=== PATIENT | female | born 1950 | race Caucasian/White ===

== ENCOUNTER 2023-12-18 04:41 | Emergency (ER) | payer MEDICARE, BC, SELFPAY ==
--- NOTE | ~2023-12-18 | XR_ITS ---
EXAMINATION: XR chest 1V portable DATE: 12/18/2023 05:12 INDICATION: Shortness of breath. TECHNIQUE: A single frontal view of the chest was obtained. COMPARISON: None. FINDINGS: A calcified left lung nodule is consistent with old granulomatous disease. There is mild sc arring at right lung apex. There is mild atelectasis at left lung base. No pleural effusion or pneumo thorax. The heart size is normal. IMPRESSION: 1. Mild scarring at right lung apex and mild atelectasis at left lung base. Reviewed, dictated and finalized at location E.
[2023-12-18 04:40] VITALS: BP 146/70; PULSE 95; RESP 20; TEMP 37.3; O2SAT 98
[2023-12-18 04:46] VITALS: PULSE 88
[2023-12-18 04:47] VITALS: O2SAT 98
[2023-12-18 04:48] VITALS: BP 146/70; PULSE 89; RESP 20; TEMP 37.3; O2SAT 97
--- NOTE | 2023-12-18 04:49 | ECG_ITS ---
Test Date: 2023-12-18 04:47:42 Measurements Intervals [place] Rate: 84 P: 12 MT: 136 QRS: 35 QRSD: 77 T: 40 QT: 355 QTc: 420 Interpretive Statements SINUS RHYTHM NORMAL ELECTROCARDIOGRAM No previous ECG available for comparison Electronically Signed On 12-18-2023 15:15:44 CDT by Earnest Pérez M.D.
[2023-12-18 04:57] LABS: Basophils Percent Auto 0.5 % (0.2-1.2); Eosinophils Absolute Auto 0.3 K/mm3 (0-0.3); Eosinophils Percent Auto 3.5 % (0-4.4); Hematocrit 39.2 % (37.0-47.0); Hemoglobin 12.9 g/dL (12.0-15.0); Immature Granulocyte Absolute 0.02 K/mm3 (0.00-0.031); Immature Granulocyte Percent A 0.3 % (0-0.5); Lymphocytes Absolute Auto 1.77 K/mm3 (0.9-3.2); Lymphocytes Percent Auto 23.1 % (18.3-44.2); Mean Corpuscular HGB Conc 32.9 g/dl (32-36); Mean Corpuscular Volume 97.3 fl (80-100); Mean Platelet Volume 9.8 fl (7.4-10.4); Monocytes Absolute Auto 1.1 K/mm3 (0.1-0.6); Monocytes Percent Auto 13.7 % (2.6-8.5); Neutrophils Absolute Auto 4.5 K/mm3 (1.3-6.7); Neutrophils Percent Auto 58.9 % (45.5-73.1); Platelet Count Result 226 k/mm3 (150-375); Red Blood Count 4.03 M/mm3 (4.2-5.4); Red Cell Distribution Width 12.8 % (11.5-14.5); White Blood Count 7.7 K/mm3 (4.5-10.0)
[2023-12-18 05:07] LABS: Alanine Aminotransferase 24 U/L (6-35); Albumin Level 4.2 g/dL (3.5-5.1); Alkaline Phosphatase 88 U/L (38-126); Anion Gap 6 mmol/L (4-12); Aspartate Amino Transferase 32 U/L (14-36); Bilirubin,Total 0.4 mg/dL (0.2-1.3); Blood Urea Nitrogen 20 mg/dL (7-17); Calcium 9.1 mg/dL (8.4-10.2); Carbon Dioxide 24 mmol/L (22-30); Chloride 106 mmol/L (98-107); Estimated CRCL calculation 46 ml/min; Estimated Glomerular Filt Rate > 60; Glucose 94 mg/dL (65-110); Potassium 4.3 mmol/L (3.4-5.0); Sodium 136 mmol/L (137-145)
[2023-12-18] MEDS: guaiFENesin/DEXTROMETHORPHAN 10 ML UDC PO (05:10)
[2023-12-18] MEDS: SODIUM CHLORIDE 0.9% IV 1,000 ML 999 ML IV CONT (05:10)
[2023-12-18] MEDS: ACETAMINOPHEN 500 MG TABLET 1000 MG PO (05:10)
[2023-12-18] MEDS: KETOROLAC 15 MG/ML VIAL (*BKC) IV PUSH (05:10)
[2023-12-18 05:50] LABS: Strep Group A RT-PCR NOT DETECTED (Negative)
[2023-12-18 06:02] LABS: Influenza A QL RT-PCR Negative (Negative); Influenza B QL RT-PCR Negative (Negative); RSV RNA, RT-PCR Negative (Negative); SARS-CoV-2 RNA PCR Negative (Negative)
--- NOTE | 2023-12-18 06:24 | ED.GENADULT ---
HPI - General Adult General Chief complaint: Shortness of Breath/Dyspnea Stated complaint: sob Time Seen by Provider: 12/18/23 04:42 History of Present Illness HPI narrative: This is a 73-year-old female presenting ED with Cough shortness of breath. Five days ago patient had cough congestion and sore throat. Now she has developed a productive cough. No chest pain or shortness of breath. She she had a fever several days ago but has been fever free since then. She has been treating her symptoms with Robitussin. patient has had some decreased appetite as well. No nausea vomiting diarrhea chest pain or abdominal pain. Related Data Home Medications Medication Instructions Recorded Confirmed diazepam 10 mg tablet 10 mg PO ONCE PRN 07/13/22 11/29/23 duloxetine 60 mg capsule,delayed 60 mg PO DAILY 07/13/22 11/29/23 release losartan 25 mg tablet 25 mg PO DAILY 07/13/22 11/29/23 mometasone 0.1 % topical cream 1 applic topical DAILY 07/13/22 11/29/23 propranolol 10 mg tablet 10 mg PO Q12H 07/13/22 11/29/23 sumatriptan succinate 50 mg tablet See Rx Instructions PO .COMPLEX 07/13/22 11/29/23 aspirin 81 mg tablet,delayed 81 mg PO DAILY 11/29/23 11/29/23 release (Adult Low Dose Aspirin) duloxetine 30 mg capsule,delayed 30 mg PO DAILY 11/29/23 11/29/23 release Allergies Allergy/AdvReac Type Severity Reaction Status Date / Time No Known Allergies Allergy Verified 12/18/23 04:50 [facility] Past Medical History Medical History Arthritis BCC (basal cell carcinoma), face Cataract Hypertension Migraine Premature atrial contractions Psoriasis Surgical History Surgical History H/O tubal ligation Hx of cataract removal with insertion of prosthetic lens S/P Mohs surgery for basal cell carcinoma Family History Family History Father Basal cell carcinoma (BCC) Diabetes mellitus Sibling Basal cell carcinoma (BCC) Mother Hypertension Heart problem Cerebrovascular accident Social History Social History Smoking status: Never smoker Second hand tobacco smoke exposure: No Alcohol intake: current Alcohol use details: Vodka tonic daily Substance use: never Do You Feel Safe in your Home?: Yes Lack of Transportation: No Lack of Food: Never True Current Housing: I Have Housing Concerned About Future Housing: No Difficulty Paying Gas/Electric Bills: No Difficulty Paying for Meds: No Currently Unemployed: No Education: Associate Degree Living arrangements: with family Occupation/Education: retired Agree to blood products: Yes Exam Narrative: APPEARANCE: No apparent distress. Head: Mild erythema of the posterior oropharynx EYES: EOMI, NOSE: Atraumatic NECK: Trachea midline RESPIRATORY: No increased rate of breathing, clear to auscultation CARDIOVASCULAR: RRR, no peripheral edema ABDOMINAL: Non-distended soft nontender MUSCULOSKELETAl: No obvious deformities NEURO: Alert. Moving 4/4 extremities SKIN:: Warm, dry. Normal color PSYCHIATRIC: Normal affect Course Vital Signs Vital signs: Vital Signs Temperature 99.1 F 12/18/23 04:40 Pulse Rate 95 12/18/23 04:40 Respiratory Rate 20 12/18/23 04:40 Blood Pressure 146/70 H 12/18/23 04:40 Pulse Oximetry 98 12/18/23 04:40 Oxygen Delivery Room Air 12/18/23 04:40 Temperature 99.1 F 12/18/23 04:48 Pulse Rate 89 12/18/23 04:48 Respiratory Rate 20 12/18/23 04:48 Blood Pressure 146/70 H 12/18/23 04:48 Pulse Oximetry 97 12/18/23 04:48 Oxygen Delivery Room Air 12/18/23 04:47 Medical Decision Making [facility] Narrative Medical decision making narrative: -Course: 73-year-old female presenting with viral symptoms. Vital signs stable and the patient is well-appearing chest x-r
[2023-12-18 06:40] VITALS: BP 130/60; PULSE 79; RESP 20; O2SAT 100
== END 2023-12-18 06:40 | disposition home or self-care (01) ==
PROVIDERS: Emergency Provider Emergency Medicine; PCP Emergency Medicine
DX: B34.9 Viral infection, unspecified (principal); Z20.822 Contact with and (suspected) exposure to COVID-19; R05.9 Cough, unspecified; M19.90 Unspecified osteoarthritis, unspecified site; I10 Essential (primary) hypertension; Z85.828 Personal history of other malignant neoplasm of skin
CPT/HCPCS: 36415; 71045; 80053; 85025; 87637; 87651; 93005; 96361; 96374; 99284; A9270; J1885; J7030

== ENCOUNTER 2024-06-05 12:48 | Outpatient (CLI) | payer MEDICARE, BC, SELFPAY ==
--- NOTE | 2024-06-05 12:03 | ECG_ITS ---
Test Date: 2024-06-05 12:17:21 Measurements Intervals [place] Rate: 69 P: -19 TX: 129 QRS: 115 QRSD: 98 T: 57 QT: 389 QTc: 418 Interpretive Statements SINUS RHYTHM POSSIBLE LEFT ATRIAL ENLARGEMENT [-0.1mV P-WAVE IN V1/V2] RIGHT AXIS DEVIATION [QRS AXIS > 100] LOW QRS VOLTAGE IN EXTREMITY LEADS [QRS DEFLECTION < 0.5 mV IN LIMB LEADS] INCOMPLETE RIGHT BUNDLE BRANCH BLOCK [90+ ms QRS DURATION, TERMINAL R IN V1/V2, 40+ ms S IN I/aVL/V4/V5/V6] ABNORMAL ECG Compared to ECG 12/18/2023 04:47:42 Right-axis deviation now present Low QRS voltage now present Incomplete right bundle-branch block now present Electronically Signed On 06-05-2024 15:02:21 APPLICATION MANAGER by Randy Perez M.D.
[2024-06-05 13:09] LABS: Basophils Absolute Auto 0.1 K/mm3 (0.0-0.1); Basophils Percent Auto 0.8 % (0.2-1.2); Eosinophils Absolute Auto 0.2 K/mm3 (0-0.3); Eosinophils Percent Auto 2.8 % (0-4.4); Hematocrit 40.6 % (37.0-47.0); Hemoglobin 13.3 g/dL (12.0-15.0); Immature Granulocyte Absolute 0.02 K/mm3 (0.00-0.031); Immature Granulocyte Percent A 0.3 % (0-0.5); Lymphocytes Absolute Auto 1.41 K/mm3 (0.9-3.2); Lymphocytes Percent Auto 19.6 % (18.3-44.2); Mean Corpuscular HGB Conc 32.8 g/dl (32-36); Mean Corpuscular Volume 97.8 fl (80-100); Mean Platelet Volume 9.7 fl (7.4-10.4); Monocytes Absolute Auto 0.7 K/mm3 (0.1-0.6); Neutrophils Absolute Auto 4.9 K/mm3 (1.3-6.7); Neutrophils Percent Auto 67.5 % (45.5-73.1); Platelet Count Result 290 k/mm3 (150-375); Red Blood Count 4.15 M/mm3 (4.2-5.4); Red Cell Distribution Width 12.8 % (11.5-14.5); White Blood Count 7.2 K/mm3 (4.5-10.0)
[2024-06-05 13:45] LABS: Alanine Aminotransferase 18 U/L (6-35); Albumin Level 4.4 g/dL (3.5-5.1); Alkaline Phosphatase 90 U/L (38-126); Anion Gap 4 mmol/L (4-12); Aspartate Amino Transferase 35 U/L (14-36); Bilirubin,Total 0.5 mg/dL (0.2-1.3); Blood Urea Nitrogen 18 mg/dL (7-17); Calcium 9.3 mg/dL (8.4-10.2); Carbon Dioxide 28 mmol/L (22-30); Chloride 106 mmol/L (98-107); Estimated Glomerular Filt Rate 54; Glucose 102 mg/dL (65-110); Potassium 4.4 mmol/L (3.4-5.0); Sodium 138 mmol/L (137-145)
== END 2024-06-05 12:49 | disposition home or self-care (01) ==
PROVIDERS: PCP Emergency Medicine; Visit Provider Emergency Medicine
DX: R00.2 Palpitations (principal); R53.83 Other fatigue; E03.9 Hypothyroidism, unspecified; E78.5 Hyperlipidemia, unspecified; I45.10 Unspecified right bundle-branch block
CPT/HCPCS: 36415; 80053; 84443; 85025; 93005

== ENCOUNTER 2024-06-06 09:06 | Outpatient (CLI) | payer MEDICARE, BC, SELFPAY ==
[2024-06-06 10:44] LABS: Cholesterol 223 mg/dL (0-200); HDL Direct 69 mg/dL; Triglycerides 72 mg/dL (<150)
[2024-06-06 10:55] LABS: LDL Cholesterol Direct 106 mg/dL
[2024-06-06 11:32] LABS: Vitamin D 25 Hydroxy 29.6 ng/mL
== END 2024-06-06 09:07 | disposition home or self-care (01) ==
PROVIDERS: PCP Emergency Medicine; Visit Provider Emergency Medicine
DX: E78.5 Hyperlipidemia, unspecified (principal); E55.9 Vitamin D deficiency, unspecified
CPT/HCPCS: 36415; 80061; 82306

== ENCOUNTER 2024-08-13 13:02 | Outpatient (CLI) | payer MEDICARE, BC, SELFPAY ==
--- NOTE | ~2024-08-13 | DEXA_ITS ---
Bone Density Report Name: RAH CALDERON Age: 74 Sex: Female Ethnicity: White Date of : 1950 Indication: postmenopausal; screening for osteoporosis; height loss; secondary osteoporosis; Referring Provider: TIFFANI ALEXANDER Study: Bone densitometry was performed. Exam Date: August 13, 2024 Accession number: [id number] Bone Density: Region BMD T-score Z-score Classification AP Spine(L1-L4) 0.703 -3.1 -0.8 Osteoporosis Femoral Neck (Left) 0.480 -3.3 -1.3 Osteoporosis Total Hip (Left) 0.564 -3.1 -1.4 Osteoporosis Femoral Neck (Right) 0.493 -3.2 -1.2 Osteoporosis Total Hip (Right) 0.535 -3.3 -1.6 Osteoporosis Total Hip Mean 0.550 -3.2 -1.5 Osteoporosis World Health Organization criteria for BMD impression classify patients as: Normal (T-score at or above -1.0), Osteopenia (T-score between -1.0 and -2.5), or Osteoporosis (T-score at or below -2.5). 10-year Fracture Risk: FRAX not reported because: Some T-score for Spine Total or Hip Total or Femoral Neck at or below -2.5 Clinical Information Provided by Patient: Has secondary osteoporosis Has used the following medications: Vitamin D Patient maximum height was 66 Menopause Age: 41 No regular weight bearing exercise Drinks caffeinated beverages Onset of menses at age 13 Number of children 2 Impression: The patient has osteoporosis, based on the Right Total Hip T-score. Discussion: INCREASED RISK OF FRACTURE. BONE DENSITY IS UNDESIRABLY LOW AT ONE OR MORE SKELETAL SITES, CONSISTENT WITH POSTMENOPAUSAL OSTEOPOROSIS. This patient's lowest T-score meets the World Health Organization's (WHO) criteria for osteoporosis at one or more sites (T-score -2.5 or below). In untreated patients, the risk of osteoporotic fracture increases approximately two-fold for each 1.0 SD decrease in T-score. Low bone density is not the only risk factor for fracture; also consider factors such as patient's age, frailty or poor health, risk of falling, risk of injury, previous osteoporotic fracture, family history of osteoporosis, cigarette smoking, low body weight, etc. Not everyone with low bone mineral density has osteoporosis; osteomalacia and other metabolic bone disorders should also be considered. Patients who have osteoporosis should be evaluated for specific diseases and conditions (secondary causes) that may cause or contribute to bone loss. The [place] Association of Clinical Endocrinologists (AACE) and National Osteoporosis Foundation (NOF) recommend pharmacologic intervention for all postmenopausal women whose T-score is in this range. The patient should follow a healthful lifestyle (good nutrition with adequate calcium and vitamin D, and appropriate weight-bearing exercise). Follow-Up: Consider a repeat BMD and Vertebral Fracture Assessment (VFA) exam in 2 years or sooner if medically necessary, to reassess this patient's status. Reported by: MALIK on 08/13/2024 1:40:00 PM. Reviewed, dictated and finalized at location A. LIZZ
--- OUTSIDE RECORDS SUMMARY | 2024-08-13 13:51 | XMS_ITS | Clinical Summary ---
Author Organization [facility] Address [address] [place] [place] [address] Care Team Providers Care Staff Nuclear Medicine Technologist Name Role Phone Jeremiah Peterson MD Primary Care Provider [phone] Chaparro Joseph MD Unavailable Paulette Chamberlain MD Unavailable [phone] Earnest Najera MD Unavailable [phone] Source Comments [facility],non-owned Affiliates and Associated Physician Practices is amultiple site organization consisting of ambulatory clinics and hospital sitesin [place], [place]. This disclosure is being madepursuant to the Care Everywhere program and may not contain all information available regarding this patient. Last updated 18.[facility] Allergies Active Allergy Reactions Criticality Noted Date Comments Trace Metals Rash Medium 06/14/2023 Medications * Be aware that medications may not be up to date on this document. Alwaysverify current medications with the patient. Medication Sig Dispensed Refills Start Date End Date Status mometasone (ELOCON) 0.1 % cream Apply 1 Drop to affected area once daily Active SUMAtriptan (IMITREX) 50 MG tablet TAKE 1 TABLET BY MOUTH ONCE NEEDED FOR MIGRAINE, NO MORE THAN 2 TABLETS PER 24 HOURS. 30 Tab 3 09/26/2016 Active Additional Information Patient taking differently: 50 mg Oral ONCE PRN, Reported on 09/13/2022 propranolol (Inderal) 10 MG tablet Take 1 (one) tablet by mouth at bedtime PRN 90 tablet 3 02/07/2023 Active DULoxetine (Cymbalta) 30 MG capsuleIndications: Depression, unspecified depression type Take 1 (one) capsule by mouth once daily 90 capsule 1 06/14/2023 Active meloxicam (Mobic) 15 MG tabletIndications:P ain in multiple finger joints,High risk medications (not anticoagulants) long-term use,Nodule of finger, unspecified laterality,Encounte r for screening mammogram for malignant neoplasm of breast Take 1 (one) tablet by mouth once daily as needed 90 tablet 07/27/2023 Active diazePAM (Valium) 10 MG tablet Take 1 (one) tablet by mouth 3 times daily as needed (dental appointments or traveling) 30 tablet 1 08/28/2023 Active Additional Information Patient not taking.Reported on 09/28/2023 aspirin (Aspirin) 81 MG chew tablet Take 1 (one) tablet by mouth once daily 100 tablet 4 09/28/2023 Active losartan (Cozaar) 50 MG tabletIndications:P rimary hypertension Take 0.5 (one-half) tablet by mouth once daily 45 tablet 3 10/27/2023 Active DULoxetine (Cymbalta) 60 MG capsule Take 1 (one) capsule by mouth once daily 90 capsule 3 11/01/2023 Active Active Problems Problem Noted Date Diagnosed Date Basal cell carcinoma 04/05/2022 Overview (04/05/2022): face Hyperplastic colonic polyp 10/04/2021 Overview (10/04/2021): Colonoscopy 08/2018 Arthritis 03/14/2019 Overview (06/21/2021): Hands- RF slightly elevated 03/2019- doing well with mobic/cymbalta/dietary changes Assessment & Plan (06/21/2021 9:16 AM PRINCIPAL IOS DEVELOPER): Continue current medication Assessment & Plan (04/20/2020 9:24 AM CDT): Continue current medication. Assessment & Plan (03/14/2019 10:23 AM CDT): Continue mobic- may take prn- rheumatology if worsens Internal hemorrhoids 08/20/2018 Overview (10/04/2021): Recent bloody stool, rectal discomfort Assessment & Plan (10/04/2021 12:01 PM CDT): Stool softener, call if symptoms persist Anxiety 06/28/2018 Overview (09/13/2022): Doing well with cymbalta Rare valium, usually takes with travel/dental visits Assessment & Plan (09/12/2023 10:08 AM CDT): Continue current medication Assessment & Plan (09/13/2022 10:56 AM CDT): Continue prn valium Assessment & Plan (03/08/2022 11:27 AM CDT): continue prn valium Assessment & Plan (10/04/2021 11:51 AM CDT): Continue prn valium Assessment & Plan (06/28/2018 10:27 AM PRINCIPAL IOS DEVELOPER): .Continue current medication. Psoriasis 06/28/2018 Overview (06/28/2018): Worsens in winter Assessment & Plan (06/28/2018 10:31 AM PRINCIPAL IOS DEVELOPER): Try dovonex Migraine 10/06/2008 Overview (04/20/2020): rare, does well with Imitrex Assessment & Plan (04/20/2020 9:23 AM CDT): Continue current medication. Assessment & Plan (06/28/2018 10:28 AM PRINCIPAL IOS DEVELOPER): Continue current medication. Assessment & Plan (04/18/2017 9:13 AM CDT): Continue current medication. Assessment & Plan (09/03/2015 8:36 AM PRINCIPAL IOS DEVELOPER): Continue current medication. Osteoporosis 05/22/2008 Overview (03/08/2022): DEXA 09/2015. 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 No agudelo/cp. Complaint with medication/exercise. palpitations last night while sleeping Assessment & Plan (09/12/2023 10:05 AM CDT): Continue current medication Assessment & Plan (09/13/2022 10:55 AM CDT): Continue current medication- follow up with cardiology Assessment & Plan (03/08/2022 11:27 AM CDT): Continue current medication Assessment & Plan (10/04/2021 11:48 AM CDT): Continue cozaar Assessment & Plan (06/21/2021 9:16 AM PRINCIPAL IOS DEVELOPER): Continue cozaar/inderal Assessment & Plan (04/20/2020 9:22 AM CDT): Continue current medication. Assessment & Plan (03/14/2019 10:22 AM CDT): Continue current medication. Assessment & Plan (06/28/2018 10:26 AM PRINCIPAL IOS DEVELOPER): Continue current medication. Assessment & Plan (04/18/2017 9:13 AM CDT): Continue current medication. Assessment & Plan (09/03/2015 8:35 AM PRINCIPAL IOS DEVELOPER): Continue current medication. Hyperlipidemia Overview (09/13/2023): Elevated LDL 12/2014- fair with diet +FH CAD AHA risk- .2018- 11%, 10/2021 13%, 03/2022 13%, 09/2023 18 Assessment & Plan (09/12/2023 10:08 AM CDT): Labs pending, consider cardiac ct Assessment & Plan (09/13/2022 10:57 AM CDT): Stricter diet- declined medication Assessment & Plan (03/08/2022 11:28 AM CDT): Check lipid/liver panel Assessment & Plan (10/04/2021 11:50 AM CDT): Consider statin Assessment & Plan (06/21/2021 9:17 AM PRINCIPAL IOS DEVELOPER): Continue diet Assessment & Plan (04/20/2020 9:23 AM CDT): Check lipid panel Assessment & Plan (03/14/2019 10:34 AM CDT): Labs at next check Assessment & Plan (04/18/2017 9:16 AM CDT): Check lipid panel Assessment & Plan (09/03/2015 8:40 AM PRINCIPAL IOS DEVELOPER): stricter diet, recheck at next visit Resolved Problems Problem Noted Date Diagnosed Date Resolved Date DM (diabetes mellitus) 02/20 Immunizations Name Administration Dates Next Due INFLUENZA VACCINE, TRIV. (AF LURIA, FLUZONE TRIVALENT; 6MO+) (IIV3) 04/04/2019,04/11/2018,03/07/2017 COVID PFIZER 12+YR 30MCG/0.3mL 03/31/2023 COVID PFIZER BIVALENT 12Y+ 30mcg/0.3ML 12/15/2022,03/18/2022 Covid Pfizer primary Monoval ent 12+ yr 0.3ml 03/18/2022,11/04/2021 Covid Pfizer primary monoval ent 12+ yr 0.3mL Purple cap 03/27/2021,08/29/2020,08/06/2020 FLU VACCINE TRI IIV3 SPLIT P F IM (FLUVIRIN) 03/17/2020 INFLUENZA A L1R4-47 VACCINE 07/13/2009 INFLUENZA VACCINE 03/25/2023,,03/18/2021,2018,04/03/2018,03/22/2017,03/03/2015,0 03/27/2012,03/17/2011 INFLUENZA VACCINE, ADJUVANTE D, QUADR. (FLUAD QUADRIVALENT; 65Y+) (AIIV4) 03/25/2023 INFLUENZA VACCINE, HIGH-DOSE , QUADR. (FLUZONE HIGH-DOSE QUADRIVALENT; 65Y+), 0.7 ML (HD-IIV4) 03/18/2022,03/18/2021,04/04/2019 PNEUMOCOCCAL PPSV23 06/21/2021 Pneumococcal Pcv13 Conj 04/20/2020 RSV AREXVY 60YR+ 0.5ML 08/29/2023 TDAP (7yrs+) 01/02/2019 Zoster Hzv Vacc Recombinant Inj Im 11/16/2021, Family History Medical History Relation Name Comments Hypertension Brother Cancer Father BASAL CELL Diabetes Father TYPE II Cancer - Breast Maternal Grandmother Grandma sabra W as told she had breast cancer, but not certain Arthritis Mother Heart Disease Mother CHF Hypertension Mother Arthritis Paternal Grandmother Cancer - Colon Neg Hx Cancer - Ovarian Neg Hx Colon polyps Neg Hx Malignant Hyperthermia Neg Hx Relation Name Status Comments Brother Father Maternal Grandmother Grandma wichema Mother Paternal Grandmother Social History Tobacco Use Types Packs/Day Years Used Date Smoking Tobacco: Never Smokeless Tobacco: Never Tobacco Cessation:Counseling Given: Not Answered Alcohol Use Standard Drinks/Week Comments Not Currently 8 (1 standard drink = 0.6 oz pur e alcohol) 1 gin nightly. PHQ-2 Answer Date Recorded Patient Health Questionnaire-2 Score 1 09/05/2023 Sex and Gender Information Value Date Recorded Sex Assigned at Female 01/12/2021 8:47 AM CDT Gender Identity Female 03/08/2019 8:54 AM CDT Sexual Orientation Not on file Last Filed Vital Signs Vital Sign Reading Time Taken Comments Blood Pressure 128/70 09/28/2023 2:08 PM CDT Pulse 92 09/28/2023 2:08 PM CDT Temperature 36.5 C (97.7 F) 09/28/2023 2:08 PM CDT Respiratory Rate 14 07/26/2018 1:17 PM PRINCIPAL IOS DEVELOPER Oxygen Saturation 97% 09/28/2023 2:08 PM CDT Inhaled Oxygen Concentration - - Weight 65.7 kg (144 lb 12.8 oz) 09/28/2023 2:08 PM CDT Height 165.1 cm (5' 5 ) 09/28/2023 2:08 PM CDT Body Mass Index 24.1 09/28/2023 2:08 PM CDT Plan of Treatment Upcoming Encounters Date Type Department Care Team (Late st Contact Info) Description 09/26/2024 10:30 AM CDT Office Visit [facility] [address], [address] [place] [address] Chaparro Joseph MD [address] [place] [address] Health Maintenance Due Date Last Done Comments CT COLONOGRAPHY - COLON CA SCREENING 1950 FIT - COLON CA SCREENING 1950 FLEX SIG - COLON CA SCREENING 1950 COLOGUARD (AGES 45-75) - COLON CA SCREENING 07/12/2021 07/12/2018 COVID-19 VACCINE (2023- season) 2024 03/31/2023, 12/15/2022, 03/18/2022, Additional history exists INFLUENZA VACCINE (#1) 2024 , 03/25/2023, 03/18/2022, Additional history exists MEDICARE AWV 12 MONTHS 06/14/2024 06/14/2023, 04/05/2022, 04/20/2020 DEPRESSION SCREENING 07/03/2024 09/12/2023, 09/13/2022, 03/08/2022 MAMMOGRAM 09/27/2024 09/28/2023, 09/01, 08/10/2021, Additional history exists COLON MONITORING 08/16/2028 08/16/2018 COLONOSCOPY - COLON CA SCREENING 08/16/2028 08/16/2018, 07/03/2006 Colorectal Cancer Screening 08/16/2028 LIPID TESTING 09/11/2028 09/12/2023, 09/01, 03/08/2022, Additional history exists DTAP/TDAP/TD VACCINES (2 - Td or Tdap) 01/02/2029 01/02/2019 BONE DENSITY TESTING Completed 09/03/2015, 04/06/2011, 04/01/2009, Additional history exists HEPATITIS C SCREENING Completed 01/31/2020, 017 PNEUMOCOCCAL VACCINE 50+ Completed 06/21/2021, 04/02 ZOSTER VACCINE Completed 11/16/2021, 09/14/2021 Respiratory Syncytial Virus (RSV) Vaccine Pt: or over 60 yrs Completed 08/29/2023 HEPATITIS B VACCINE Aged Out No longe r eligible based on patient's age to complete this topic HIB VACCINE Aged Out No longer eligi ble based on patient's age to complete this topic HPV VACCINE Aged Out No longer eligi ble based on patient's age to complete this topic MENINGOCOCCAL (Group B) VACCINE Aged Out No longer eligible based on patient's age to complete this topic MENINGOCOCCAL VACCINE Aged Out No xiang obi eligible based on patient's age to complete this topic Goals Goal Patient Goal Type Associated Problems Recent Progress Patient-Stated? Author Blood Pressure < 140/90 Blood Pressure 128/70(2023 2:08 PM CDT) No Patricia Louie Have labs drawn Lifestyle No Irma Laughlin Procedures Procedure Name Priority Date/Time Associated Diagnosis Comments MAMMO BILAT SCREENING W IRMA Routine 09/28/2023 11:36 AM CDT Visit for screening mammogram LIPID PROFILE Routine 09/12/2023 9:41 AM CDT Lipid screening HEPATITIS SCREEN ACUTE Routine 01/31/2020 10:44 AM CDT Chronic fatigue, unspecified Inflammatory arthritis Pain in both hands Psoriasis Rheumatoid factor positive ENDOSCOPY, COLON, DIAGNOSTIC Routine 08/16/2018 Positive colorectal cancer screening using Cologuard test COLOGUARD TEST Routine 07/12/2018 Screen for colon cancer DEXA BONE DENSITY 2 SITES Routine 09/03/2015 9:23 AM PRINCIPAL IOS DEVELOPER Osteoporosis from Last 3 Months or Most Recently Relevant to Health Maintenance Results * MAMMO BILAT SCREENING W IRMA (09/28/2023 11:36 AM CDT) Anatomical Region Laterality Modality Breast Bilateral Mammography 09/29/2023 2:41 PM CDT Impressions 09/29/2023 2:42 PM CDT : No mammographic evidence of malignancy. BI-RADS Category 1: Negative Recommendation: Resume routine yearly mammography schedule for women over age 40 or return sooner if clinically indicated. > Interpreting Provider: Uche Rockwell MD on 09/29/2023 2:42 PM Narrative 09/29/2023 2:42 PM CDT Bilateral mammography. Most recent comparison: from within 2 years as documented in PACS. History: Screening mammogram. Technique: Bilateral Breasts. Mammography views included: CC and MLO. Images interpreted with CAD. Following current [facility] protocol, 3D mammographic tomosynthesis images were obtained and reviewed on a dedicated viewing station. FINDINGS: Breast composition: Heterogeneously dense which may obscure small masses. No suspicious microcalcifications, masses or areas of architectural distortion. eJremiah Peterson MD MAMMO ORDERABLES * (ABNORMAL) LIPID PROFILE (09/12/2023 9:41 AM CDT) Cholesterol 223(H) <200 mg/dL [facility] INSURANCE BILL Triglycerides 74 <150 mg/dL [facility] INSURANCE BILL HDL Cholesterol 73 >40 mg/dL [facility] INSURANCE BILL VLDL Calculated 15 <=30 mg/dL [facility] INSURANCE BILL LDL Calculated 135(H) <130 mg/dL [facility] INSURANCE BILL Comment:FASTING Blood BLOOD SPECIMEN / Unknown 09/12/2023 9:41 AM CDT 09/12/2023 Narrative Resulting Agency Comment Lab Testing performed at: [facility] [address] [place] [id number] Paulette Vega APRN-YOHANA LAB - CHEMISTRY O RDALLIE [facility] INSURANCE BILL [address] [place] [address] * HEPATITIS SCREEN ACUTE (01/31/2020 10:44 AM CDT) Hepatitis A Virus Antibody IgM Non Reactive Non Reactive [facility] INSURANCE BILL Hepatitis B Virus Surface Antigen Non Reactive Non Reactive [facility] INSURANCE BILL Hepatitis B Core Virus Antibody IgM Non Reactive Non Reactive [facility] INSURANCE BILL Hepatitis C Antibody Non Reactive Non Reactive [facility] INSURANCE BILL Comment: Non Reactive - Antibodies to Hepatitis C virus (HCV) were no t detected, result does not exclude early acute HCV infection. FASTING Blood BLOOD SPECIMEN / Unknown 01/31/2020 10:44 AM CDT 01/31/2020 Narrative Resulting Agency Comment Lab Testing performed at: [facility] [address] [place] [id number] Elliot Dodge MD LAB - CHEMISTRY KARLA NUNEZ [facility] INSURANCE BILL [address] [place] [address] * ENDOSCOPY, COLON, DIAGNOSTIC (08/16/2018) Mikala Marquez CALCINE FURNACE TENDER-COIN DEALER GI PROCEDUR E ORDERABLES [facility] RESULT SCAN * COLOGUARD TEST (07/12/2018) Cologuard (External Result) NEGATIVE OTHER LAB Stool STOOL SPECIMEN / Unknown 07/12/2018 Jeremiah Peterson MD LAB - CHEMISTRY KARLA NUNEZ Performing Organization Address City/[facility]/ZIP Co de Phone Number OTHER LAB * DEXA BONE DENSITY 2 SITES (09/03/2015 9:23 AM PRINCIPAL IOS DEVELOPER) Anatomical Region Laterality Modality Mammography 09/03/2015 11:3 7 AM PRINCIPAL IOS DEVELOPER Narrative 09/03/2015 11:44 AM PRINCIPAL IOS DEVELOPER Bone density study (DEXA): HISTORY: Postmenopausal female Current study: September 03, 2015 Prior study: April 06, 2011 LUMBAR SPINE (L1-L4): Osteoporosis. Not significantly changed compared to the prior study. Bone mineral density (g/cm2): 0.871 (previous density 0.862) Current T-score: -2.6 Current Z-score: -1.0 Prior T-score: -2.7 Prior Z-score: -1.4 LEFT FEMORAL NECK: Borderline osteoporosis. Unchanged compared to the prior study. Bone mineral density (g/cm2): 0.703 (previous density 0.694) Current T-score: -2.4 Current Z-score: -1.0 Prior T-score: -2.5 Prior Z-score: -1.2 Please see the PACS images for additional details. World Health Organization definitions of standard deviations relative to the mean T-score: Normal bone density = -1.0 and above Mild osteopenia = -1.0 to -1.5 Moderate osteopenia = -1.5 to -2.0 Severe osteopenia = -2.0 to -2.5 Osteoporosis = -2.5 and below [facility]: [employer] [facility]: [employer] [facility] [address]: [facility]: [employer] C Procedure Note Cleopatra Rogers MD - 09/03/2015 Bone density study (DEXA): HISTORY: Postmenopausal female Current study: September 03, 2015 Prior study: April 06, 2011 LUMBAR SPINE (L1-L4): Osteoporosis. Not significantly changed compared to the prior study. Bone mineral density (g/cm2): 0.871 (previous density 0.862) Current T-score: -2.6 Current Z-score: -1.0 Prior T-score: -2.7 Prior Z-score: -1.4 LEFT FEMORAL NECK: Borderline osteoporosis. Unchanged compared to the prior study. Bone mineral density (g/cm2): 0.703 (previous density 0.694) Current T-score: -2.4 Current Z-score: -1.0 Prior T-score: -2.5 Prior Z-score: -1.2 Please see the PACS images for additional details. World Health Organization definitions of standard deviations relative to the mean T-score: Normal bone density = -1.0 and above Mild osteopenia = -1.0 to -1.5 Moderate osteopenia = -1.5 to -2.0 Severe osteopenia = -2.0 to -2.5 Osteoporosis = -2.5 and below [facility]: [employer] [facility]: [employer] [facility] [address]: [facility]: [employer] Jeremiah Peterson MD DEXA ORDERABLES from Last 3 Months or Most Recently Relevant to Health Maintenance Care Teams Staff Nuclear Medicine Technologist Relationship Specialty Start Date End Date Jeremiah Peterson MD [address] [place] [address] PCP - General Internal Medicine 08/31/15 Earnest Najera MD [address] [place] [address] PCP - Attributed-MSSP 04/02/24 Chaparro Joseph MD [address] [place] [address] Hand Ornament Maker Cardiovascular Disease 04/18/17 [place] [address] [place] [address] [id number] Dermatology 04/18/17
--- OUTSIDE RECORDS SUMMARY | 2024-08-13 13:51 | XMS_ITS | Patient Health Record ---
Author Organization Inc. Oral Address [address] [place], [place] [address] Care Team Providers Care Training Intern Name Role Phone BERTA LEDESMA MD Primary Care Provider Unavail able Paulette Chamberlain Unavailable [phone] ALLERGIES Allergen (clinical drug ingredient) Drug/Non Drug Allergy documented on EMR Reaction Allergy Type Onset Date Status base metal (uncoded) Unknown Allergy Active REASON FOR REFERRAL No Information MEDICATIONS Medication SIG (Take, Route, Frequency, Duration) Notes Start Date End Date Status SUMAtriptan Active diazePAM Active DULoxetine HCl 30 MG TAKE 1 CAPSULE BY M OUTH EVERY DAY Oral for 90 Active Propranolol HCl Acti ve Mometasone Furoate 0.1 % APPLY A THIN LA KARON TOPICALLY TO ARMS AND LEGS TWICE DAILY for 20 Active Meloxicam 15 MG TAKE 1 TABLET BY BORIS TH EVERY DAY Oral for 90 Active Losartan Potassium A ctive IMMUNIZATIONS Vaccine Route Administration Date Status Comme nts Influenza, unspecified formu lation (CPT 80634 Inactive) Unknown 03/07/2017 Administered Influenza, unspecified formu lation (CPT 21585 Inactive) Unknown 04/11/2018 Administered Influenza, unspecified formu lation (CPT 75891 Inactive) Unknown 04/04/2019 Administered Influenza, unspecified formu lation (CPT 94324 Inactive) Unknown 03/17/2020 Administered Influenza, unspecified formu lation (CPT 69396 Inactive) Unknown 04/20/2021 Administered Influenza, unspecified formu lation (CPT 35326 Inactive) Unknown 03/18/2022 Administered Influenza, unspecified formu lation (CPT 26434 Inactive) Unknown 03/08/2023 Administered Pneumococcal polysaccharide PPV23 Unknown 11/30/2017 Re fused Pneumococcal polysaccharide PPV23 Unknown 11/10/2021 Re fused Pneumococcal polysaccharide PPV23 Unknown 11/14/2023 Re fused SOCIAL HISTORY Tobacco Use: Social History Observation Description Date Details (start date - stop date) Never Smoker NA - NA Sex Assigned At : Social History Observation Description Sex Assigned At Unknown Tobacco Use/Smoking Question Answer Notes Are you a nonsmoker PROBLEMS Problem Type ICD Code Onset Dates Problem Status W/U Status Risk SNOMED Code Notes Problem Psoriasis (L40.9) Active confirmed Psoriasis (6580200) approximately 4% by surface area coverage Thinly scattered over her elbows legs and abdomen which patient is happy with and will continue topical mometasone cream as needed. Problem Actinic keratosis (L57.0) Active confirmed Actinic keratosis (638802729) Lesions were treated with cryotherapy for 15 seconds a piece today in my office as per procedure note.. Patient was warned of the side effects including large blisters, pain, scarring, secondary infection and recurrence. Patient was instructed to bathe normally and treat with topical antibiotics and a bandage once the blisters unroof and the sites are healed. Written instructions were given. Problem Multiple nevi (D22.9) Active confirmed Multiple benign melanocytic nevi (029453820) Benign appearing nevi were noted on head, neck, trunk or extremities. Patient education was provided including the ABCDs of melanoma and identification of nonmelanoma skin cancers as well as the importance of sun protection. 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 Patient instructed on skin care monitoring and sun protection. Problem Seborrheic keratoses (L82.1) Active confirmed Multiple seborrheic keratoses (190496058) Problem History of basal cell carcinoma (Z85.828) Active confirmed History of malignant basal cell tumor of skin (483556323) No evidence of recurrence or new lesions indicative of this malignancy on full skin exam. Patient instructed on skin cancer monitoring and sun protection. Problem Psoriasis vulgaris (L40.0) Active confirmed Psoriasis vulgaris (771234629) Poorly controlled with mometasone cream daily as needed, patient was given samples of zoryve in an attempt to get better control of her plaques. Encounters Encounter Location Date Provider [facility] [address] [place], [place] [id number] 11/14/2023 Paulette Chamberlain Psoriasis L40.9 ; Multiple nevi D22.9 ; Actinic keratosis L57.0 ; Keratoacanthoma L85.8 and History of basal cell carcinoma Z85.828 ASSESSMENTS Encounter Date Diagnosis Assessment Notes Treatment Notes Treatment Clinical Notes 11/14/2023 Psoriasis (ICD-10 - L40.9) approximately 4% by surface area coverage Thinly scattered over her elbows legs and abdomen which patient is happy with and will continue topical mometasone cream as needed. 11/14/2023 Multiple nevi (ICD-1 0 - D22.9) Benign appearing nevi were noted on head, neck, trunk or extremities. Patient education was provided including the ABCDs of melanoma and identification of nonmelanoma skin cancers as well as the importance of sun protection. 11/14/2023 Actinic keratosis (ICD-10 - L57.0) Lesions were treated with cryotherapy for 15 seconds a piece today in my office as per procedure note.. Patient was warned of the side effects including large blisters, pain, scarring, secondary infection and recurrence. Patient was instructed to bathe normally and treat with topical antibiotics and a bandage once the blisters unroof and the sites are healed. Written instructions were given. 11/14/2023 Keratoacanthoma (ICD-10 - L85.8) No evidence of recurrence or new lesions indicative of this malignancy on full skin exam. Patient instructed on skin care monitoring and sun protection. 11/14/2023 History of basal mine l carcinoma (ICD-10 - Z85.828) No evidence of recurrence or new lesions indicative of this malignancy on full skin exam. Patient instructed on skin cancer monitoring and sun protection. 11/14/2023 Other Learning About Sun Damage and Your Skin material was published PLAN OF TREATMENT Pending Test Test Name Order Date Dermatopathology 11/30/2017 Skin, Shave Biopsy 11/10/2021 Next Appt Details Provider Name:Paulette Chamberlain , 11/12/2024 10:30:00 AM, [address], [place], [place], [id number], Insurance Providers Payer Name Payer Address Payer Phone Subscriber Number Group Number Insured Name Patient Relationship to Insured Coverage Start Date Coverage End Date [place] [address] [address] [place] [address] [phone] [id number] RAH AVILA Self - patient is the insured [facility] [address] [place] [address] [id number] SHAKA AVILA Spouse - patient is the spouse of the insured MEDICAL (GENERAL) HISTORY Medical History History ICD Code Actinic Keratosis (pre-cancers) Arthritis Basal Cell Carcinoma Hypertension Migraines Surgical History Surgery Date(Month/Year) tubal ligation skin cancer surgery
--- OUTSIDE RECORDS SUMMARY | 2024-08-13 13:51 | XMS_ITS | Referral Summary ---
Author Organization [facility] Address [address] [place] [address] Care Team Providers Care Learning Center Instructor Name Role Phone Jeremiah Peterson MD Primary Care Provider [phone] Chaparro Joseph MD Unavailable Paulette Chamberlain MD Unavailable [phone] Earnest Najera MD Unavailable [phone] Source Comments [facility],non-owned Affiliates and Associated Physician Practices is amultiple site organization consisting of ambulatory clinics and hospital sitesin [place], [place], [place] and [place]. This disclosure is being madepursuant to the Care Everywhere program and may not contain all information available regarding this patient. Last updated 18.[facility] Allergies Active Allergy Reactions Criticality Noted Date [...] changes Assessment & Plan (06/21/2021 9:16 AM GEAR TOOTH GRINDING MACHINE OPERATOR): Continue current medication Assessment & Plan (04/20/2020 [...] valium Assessment & Plan (06/28/2018 10:27 AM GEAR TOOTH GRINDING MACHINE OPERATOR): .Continue current medication. Psoriasis 06/28/2018 Overview (06/28/2018): Worsens in winter Assessment & Plan (06/28/2018 10:31 AM GEAR TOOTH GRINDING MACHINE OPERATOR): Try dovonex Migraine 10/06/2008 Overview (04/20/2020): rare, does well with Imitrex Assessment & Plan (04/20/2020 9:23 AM CDT): Continue current medication. Assessment & Plan (06/28/2018 10:28 AM GEAR TOOTH GRINDING MACHINE OPERATOR): Continue current medication. Assessment & Plan (04/18/2017 9:13 AM CDT): Continue current medication. Assessment & Plan (09/03/2015 8:36 AM GEAR TOOTH GRINDING MACHINE OPERATOR): Continue current medication. Osteoporosis 05/22/2008 Overview (03/08/2022): DEXA 09/2015. 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 Assessment & Plan (03/14/2019 10:22 AM CDT): Continue current medication. Assessment & Plan (06/28/2018 10:26 AM GEAR TOOTH GRINDING MACHINE OPERATOR): Continue current medication. Assessment & Plan (04/18/2017 9:13 AM CDT): Continue current medication. Assessment & Plan (09/03/2015 8:35 AM GEAR TOOTH GRINDING MACHINE OPERATOR): Continue current medication. Hyperlipidemia Overview (09/13/2023): Elevated [...] statin Assessment & Plan (06/21/2021 9:17 AM GEAR TOOTH GRINDING MACHINE OPERATOR): Continue diet Assessment & Plan (04/20/2020 9:23 AM CDT): Check lipid panel Assessment & Plan (03/14/2019 10:34 AM CDT): Labs at next check Assessment & Plan (04/18/2017 9:16 AM CDT): Check lipid panel Assessment & Plan (09/03/2015 8:40 AM GEAR TOOTH GRINDING MACHINE OPERATOR): stricter diet, recheck at next visit Resolved [...] P F IM (FLUVIRIN) 03/17/2020 INFLUENZA A [id number] VACCINE 07/13/2009 INFLUENZA VACCINE 03/25/2023,,03/18/2021,2018,04/03/2018,03/22/2017,03/03/2015,0 03/27/2012,03/17/2011 INFLUENZA VACCINE, ADJUVANTE D, QUADR. (FLUAD QUADRIVALENT; 65Y+) (AIIV4) 03/25/2023 INFLUENZA VACCINE, HIGH-DOSE , QUADR. (FLUZONE HIGH-DOSE QUADRIVALENT; 65Y+), 0.7 ML (HD-IIV4) 03/18/2022,03/18/2021,04/04/2019 PNEUMOCOCCAL PPSV23 06/21/2021 Pneumococcal Pcv13 Conj 04/20/2020 RSV AREXVY 60YR+ 0.5ML 08/29/2023 TDAP (7yrs+) 01/02/2019 Zoster Hzv Vacc Recombinant Inj Im 11/16/2021, Social History Tobacco Use Types Packs/Day Years [...] CDT Respiratory Rate 14 07/26/2018 1:17 PM GEAR TOOTH GRINDING MACHINE OPERATOR Oxygen Saturation 97% 09/28/2023 2:08 PM CDT Inhaled Oxygen Concentration - - Weight 65.7 kg (144 lb 12.8 oz) 09/28/2023 2:08 PM CDT Height 165.1 cm (5' 5 ) 09/28/2023 2:08 PM CDT Body Mass Index 24.1 09/28/2023 2:08 PM CDT Plan of Treatment Upcoming Encounters Date Type Department Care Team (Late st Contact Info) Description 09/26/2024 10:30 AM CDT Office Visit [facility] [address], [address] [place] [address] Chaparro Joseph MD [address] [place] [address] Goals Goal Patient Goal Type Associated Problems [...] DENSITY 2 SITES Routine 09/03/2015 9:23 AM GEAR TOOTH GRINDING MACHINE OPERATOR Osteoporosis from Last 3 Months or Most [...] MLO. Images interpreted with CAD. Following current [facility] protocol, 3D mammographic tomosynthesis images were obtained and reviewed on a dedicated viewing station. FINDINGS: Breast composition: Heterogeneously dense which may obscure small masses. No suspicious microcalcifications, masses or areas of architectural distortion. Jeremiah Peterson MD MAMMO ORDERABLES * (ABNORMAL) LIPID [...] Resulting Agency Comment Lab Testing performed at: [facility] [address] [place] [id number] Paulette Vega SENIOR ONLINE MARKETING MANAGER-CUSTOMER SUPPORT MANAGER LAB - CHEMISTRY O RDERABLES Performing Organization Address City/[facility]/ZIP Co de Phone Number [facility] INSURANCE BILL [address] [place] [address] * HEPATITIS SCREEN ACUTE (01/31/2020 10:44 AM [...] Resulting Agency Comment Lab Testing performed at: [facility] [address] [place] [id number] Elliot Dodge MD LAB - CHEMISTRY KARLA NUNEZ Performing Organization Address [facility] Co de Phone Number [facility] INSURANCE BILL [address] [place] [address] * ENDOSCOPY, COLON, DIAGNOSTIC (08/16/2018) Mikala Marquez SENIOR ONLINE MARKETING MANAGER-CUSTOMER SUPPORT MANAGER GI PROCEDUR E ORDERABLES [facility] RESULT SCAN * COLOGUARD TEST (07/12/2018) Cologuard (External Result) NEGATIVE OTHER LAB Stool STOOL SPECIMEN / Unknown 07/12/2018 Jeremiah Peterson MD LAB - CHEMISTRY KARLA NUNEZ [facility] Organization Address City/State/ZIP Co de Phone Number OTHER LAB * DEXA BONE DENSITY 2 SITES (09/03/2015 9:23 AM GEAR TOOTH GRINDING MACHINE OPERATOR) Anatomical Region Laterality Modality Mammography 09/03/2015 11:3 7 AM GEAR TOOTH GRINDING MACHINE OPERATOR Narrative 09/03/2015 11:44 AM GEAR TOOTH GRINDING MACHINE OPERATOR Bone density study (DEXA): HISTORY: Postmenopausal female [...] to -2.5 Osteoporosis = -2.5 and below [facility]: [employer] [facility]: [facility] [address]: [employer] [facility]: [employer] [place] C Procedure Note Cleopatra Rogers MD - [...] to -2.5 Osteoporosis = -2.5 and below [facility]: [employer] [facility]: [employer] [facility]: [employer] [facility]: [employer] [place] C Jeremiah Peterson MD DEXA ORDERABLES from Last 3 Months or Most Recently Relevant to Health Maintenance Care Teams Learning Center Instructor Relationship Specialty Start Date End Date Jeremiah Peterson MD [address] [place] [address] PCP - General Internal Medicine 08/31/15 Earnest Najera MD [address] [place] [address] PCP - Attributed-MSSP 04/02/24 Chaparro Joseph MD [address] [place] [address] Visiting Housekeeper Cardiovascular Disease 04/18/17 [place] [address] [place] [address] [place] [phone] Dermatology 04/18/17
--- OUTSIDE RECORDS SUMMARY | 2024-08-13 13:51 | XMS_ITS ---
Author Organization Inc. Oral Address [address] [place], [place] [address] Care Team Providers Care Jigger Crown Pouncing Machine Operator Name Role Phone BERTA LEDESMA MD Primary Care Provider Unavail able Paulette Chamberlain Unavailable [phone] ALLERGIES Allergen (clinical drug ingredient) Drug/Non Drug Allergy documented on EMR Reaction Allergy Type Onset Date Status base metal (uncoded) Unknown Allergy Active REASON FOR VISIT 12 mo hx bcc MEDICATIONS Medication SIG (Take, Route, Frequency, Duration) Notes Start Date End Date Status Mometasone Furoate 0.1 % APPLY A THIN LA KARON TO ARMS AND LEGS TWICE DAILY for 20 Acti ve SUMAtriptan Active diazePAM Active DULoxetine HCl 30 MG TAKE 1 CAPSULE BY M OUTH EVERY DAY Oral for 90 Active Meloxicam 15 MG TAKE 1 TABLET BY BORIS TH EVERY DAY Oral for 90 Active Propranolol HCl Acti ve Losartan Potassium A ctive IMMUNIZATIONS Vaccine Route Administration Date Status Comme nts Pneumococcal polysaccharide PPV23 Unknown 11/14/2023 Re fused SOCIAL HISTORY Tobacco Use: Social History Observation Description Date Details (start date - stop date) Never Smoker NA - NA Sex Assigned At : Social History Observation Description Sex Assigned At Unknown Tobacco Use/Smoking Question Answer Notes Are you a nonsmoker Encounters Encounter Location Date [facility] [place] [address] [place], [place] [id number] 11/14/2023 Paulette Chamberlain Psoriasis L40.9 ; Multiple [...] Skin material was published PLAN OF TREATMENT Treatment Notes Assessment Notes Other Learning About Sun D amage and Your Skin material was published Next Appt Details Follow Up: 11-12-24, Reason: hx bcc Provider Name:Paulette Chamberlain , 11/12/2024 10:30:00 AM, [address], [address], [place], [place], [id number], Procedure Notes * Category Sub-Category Detail Notes AK Cryosurgery Consent After benefits, alternatives and risks including bleeding, pain, blistering, infection and scarring were discussed with the patient, verbal consent was obtained location _R Cheek number _1 procedure Cryosurgery was perf ormed for approximately 15 sec on lesions ranging in size from 4-10 mm in diameter. Post op Post-procedure wound care was discussed and an aftercare sheet was provided
--- OUTSIDE RECORDS SUMMARY | 2024-08-13 13:51 | XMS_ITS | Patient Health Summary ---
Author Organization [facility] Address [address] [place] [address] Care Team Providers Care Medical Biller Name Role Phone Jeremiah Peterson MD Primary Care Provider [phone] Chaparro Joseph MD Unavailable Paulette Chamberlain MD Unavailable [phone] Earnest Najera MD Unavailable Note from [facility] [place],non-owned Affiliates and Associated Physician Practices is amultiple site organization consisting of ambulatory clinics and hospital sitesin [place], [place], [place] and [place]. This disclosure is being madepursuant to the Care Everywhere program and may not contain all information available regarding this patient. Last updated 18.[facility] Allergies * Trace Metals(Rash) -Medium Criticality Medications * Be aware that medications may not be up to date on this document. Alwaysverify current medications with the patient. * mometasone (ELOCON) 0.1 % cream Apply 1 Drop to affected area once daily * SUMAtriptan (IMITREX) 50 MG tablet(Started 09/26/2016) TAKE 1 TABLET BY MOUTH ONCE NEEDED FOR MIGRAINE, NO MORE THAN 2 TABLETS PER 24 HOURS. 3 refills remaining * propranolol (Inderal) 10 MG tablet(Started 02/07/2023) Take 1 (one) tablet by mouth at bedtime PRN 3 refills by 02/07/2024 * DULoxetine (Cymbalta) 30 MG capsule(Started 06/14/2023) Take 1 (one) capsule by mouth once daily 1 refill by 06/13/2024 * meloxicam (Mobic) 15 MG tablet(Started 07/27/2023) Take 1 (one) tablet by mouth once daily as needed * diazePAM (Valium) 10 MG tablet(Started 08/28/2023) Take 1 (one) tablet by mouth 3 times daily as needed (dental appointments or traveling) 1 refill by 02/24/2024 * aspirin (Aspirin) 81 MG chew tablet(Started 09/28/2023) Take 1 (one) tablet by mouth once daily 4 refills by 09/27/2024 * losartan (Cozaar) 50 MG tablet(Started 10/27/2023) Take 0.5 (one-half) tablet by mouth once daily 3 refills by 10/26/2024 * DULoxetine (Cymbalta) 60 MG capsule(Started 11/01/2023) Take 1 (one) capsule by mouth once daily 3 refills by 10/31/2024 Active Problems Problem Noted Date Diagnosed Date Basal cell carcinoma 04/05/2022 Hyperplastic colonic polyp 10/04/2021 Arthritis 03/14/2019 Internal hemorrhoids 08/20/2018 Anxiety 06/28/2018 Psoriasis 06/28/2018 Migraine 10/06/2008 Osteoporosis 05/22/2008 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 (AFLURIA, FLUZONE TRIVALENT; 6MO+) (IIV3)(Given 04/04/2019, 04/11/2018, 03/07/2017) * COVID PFIZER 12+YR 30MCG/0.3mL(Given 03/31/2023) * COVID PFIZER BIVALENT 12Y+ 30mcg/0.3ML(Given 12/15/2022, 03/18/2022) * Covid Pfizer primary Monovalent 12+ yr 0.3ml(Given 03/18/2022, 11/04/2021) * Covid Pfizer primary monovalent 12+ yr 0.3mL Purple cap(Given 03/27/2021, 08/29/2020, 08/06/2020) * FLU VACCINE TRI IIV3 SPLIT PF IM (FLUVIRIN)(Given 03/17/2020) * INFLUENZA A [id number] VACCINE(Given 07/13/2009) * INFLUENZA VACCINE(Given 03/25/2023, 03/18/2022, 03/18/2021, 04/04/2019, 04/03/2018, 03/22/2017, 03/03/2015, 03/27/2012, 03/17/2011) * INFLUENZA VACCINE, ADJUVANTED, QUADR. (FLUAD QUADRIVALENT; 65Y+) (AIIV4)(Given 03/25/2023) * INFLUENZA VACCINE, HIGH-DOSE, QUADR. (FLUZONE HIGH-DOSE QUADRIVALENT; 65Y+), 0.7 ML (HD-IIV4)(Given 03/18/2022, 03/18/2021, 04/04/2019) * PNEUMOCOCCAL PPSV23(Given 06/21/2021) * Pneumococcal Pcv13 Conj(Given 04/20/2020) * RSV AREXVY 60YR+ 0.5ML(Given 08/29/2023) * TDAP (7yrs+)(Given 01/02/2019) * Zoster Hzv Vacc Recombinant Inj Im(Given 11/16/2021, 09/14/2021) Social History Tobacco Use Types Packs/Day Years [...] CDT Respiratory Rate 14 07/26/2018 1:17 PM INSURANCE ADJUSTOR Oxygen Saturation 97% 09/28/2023 2:08 PM CDT Inhaled Oxygen Concentration - - Weight 65.7 kg (144 lb 12.8 oz) 09/28/2023 2:08 PM CDT Height 165.1 cm (5' 5 ) 09/28/2023 2:08 PM CDT Body Mass Index 24.1 09/28/2023 2:08 PM CDT Procedures * MAMMO BILAT SCREENING W IRMA(Performed 09/28/2023) Performed for Visit for screening mammogram * CBC W AUTO DIFFERENTIAL(Performed 09/12/2023) Performed for Primary hypertension, Depression, unspecified depression type, Encounter for long-term (current) use of medications * TSH REFLEX FREE T4(Performed 09/12/2023) Performed for Primary hypertension * LIPID PROFILE(Performed 09/12/2023) Performed for Lipid screening * COMPREHENSIVE METABOLIC PANEL(Performed 09/12/2023) Performed for Primary hypertension, Depression, unspecified depression type * ECHO COMPLETE(Performed 04/25/2023) Performed for Primary hypertension * MAMMO BILAT SCREENING W IRMA(Performed 09/26/2022) Performed for Encounter for screening mammogram for malignant neoplasm of breast * LIPID PROFILE(Performed 09/26/2022) Performed for Primary hypertension, Hyperlipidemia, unspecified hyperlipidemia type * COMPREHENSIVE METABOLIC PANEL(Performed 09/26/2022) Performed for Primary hypertension, Hyperlipidemia, unspecified hyperlipidemia type * CBC W AUTO DIFFERENTIAL(Performed 03/08/2022) Performed for Palpitation * TSH REFLEX FREE T4(Performed 03/08/2022) Performed for Palpitation * LIPID PROFILE(Performed 03/08/2022) Performed for Hyperlipidemia, unspecified hyperlipidemia type * COMPREHENSIVE METABOLIC PANEL(Performed 03/08/2022) Performed for Primary hypertension, Hyperlipidemia, unspecified hyperlipidemia type, Palpitation * MAMMO BILAT SCREENING W IRMA(Performed 08/10/2021) Performed for Visit for screening mammogram * ERYTHROCYTE SEDIMENTATION RATE(Performed 06/16/2021) Performed for Pain in multiple finger joints, High risk medications (not anticoagulants) long-term use, Osteoarthritis, unspecified osteoarthritis type, unspecified site, Pain in both hands, Psoriasis * C-REACTIVE PROTEIN(Performed 06/16/2021) Performed for Pain in multiple finger joints, High risk medications (not anticoagulants) long-term use, Osteoarthritis, unspecified osteoarthritis type, unspecified site, Pain in both hands, Psoriasis * COMPREHENSIVE METABOLIC PANEL(Performed 06/16/2021) Performed for Pain in multiple finger joints, High risk medications (not anticoagulants) long-term use, Osteoarthritis, unspecified osteoarthritis type, unspecified site, Pain in both hands, Psoriasis * CBC W AUTO DIFFERENTIAL(Performed 06/16/2021) Performed for Pain in multiple finger joints, High risk medications (not anticoagulants) long-term use, Osteoarthritis, unspecified osteoarthritis type, unspecified site, Pain in both hands, Psoriasis * NM HEPATOBILIARY W EF(Performed 12/07/2020) Performed for Abdominal pain, RUQ (right upper quadrant) * US ABDOMEN COMPLETE(Performed 12/02/2020) Performed for Abdominal pain, RUQ (right upper quadrant), Hyperlipidemia, unspecified hyperlipidemia type * CBC W AUTO DIFFERENTIAL(Performed 12/01/2020) Performed for Abdominal pain, RUQ (right upper quadrant), Hyperlipidemia, unspecified hyperlipidemia type * AMYLASE BLOOD(Performed 12/01/2020) Performed for Abdominal pain, RUQ (right upper quadrant), Hyperlipidemia, unspecified hyperlipidemia type * COMPREHENSIVE METABOLIC PANEL(Performed 12/01/2020) Performed for Abdominal pain, RUQ (right upper quadrant), Hyperlipidemia, unspecified hyperlipidemia type * LIPID PROFILE(Performed 12/01/2020) Performed for Abdominal pain, RUQ (right upper quadrant), Hyperlipidemia, unspecified hyperlipidemia type * SARS-COV-2 (COVID-19)+INFLU A+B AG (AMB) POC(Performed 09/07/2020) Performed for Congestion of right ear, Nasal congestion * MAMMO BILAT SCREENING(Performed 08/10/2020) Performed for Visit for screening mammogram * LIPID PROFILE(Performed 04/20/2020) Performed for Essential hypertension, Hyperlipidemia, unspecified hyperlipidemia type * COMPREHENSIVE METABOLIC PANEL(Performed 04/20/2020) Performed for Essential hypertension, Hyperlipidemia, unspecified hyperlipidemia type * HEPATITIS SCREEN ACUTE(Performed 01/31/2020) Performed for Chronic fatigue, unspecified , Inflammatory arthritis, Pain in both hands, Psoriasis,Rheumatoid factor positive * RHEUMATOID FACTOR BLOOD QUANTITATIVE(Performed 01/31/2020) Performed for Inflammatory arthritis, Pain in both hands, Psoriasis, Rheumatoid factor positive * CYCLIC CITRUL PEPTIDE ANTIBODY IGG/IGA (CCP)(Performed 01/31/2020) Performed for Inflammatory arthritis, Pain in both hands, Psoriasis, Rheumatoid factor positive * SS-A (SJOGREN'S) ANTIBODY(Performed 01/31/2020) Performed for Inflammatory arthritis, Pain in both hands, Psoriasis, Rheumatoid factor positive * SS-B (SJOGREN'S) ANTIBODY(Performed 01/31/2020) Performed for Inflammatory arthritis, Pain in both hands, Psoriasis, Rheumatoid factor positive * TANNER BLOOD SCREEN W/REFLEX TITER(Performed 01/31/2020) Performed for Inflammatory arthritis, Pain in both hands, Psoriasis, Rheumatoid factor positive * CK BLOOD(Performed 01/31/2020) Performed for Inflammatory arthritis, Pain in both hands, Psoriasis, Rheumatoid factor positive * URIC ACID BLOOD(Performed 01/31/2020) Performed for Inflammatory arthritis, Pain in both hands, Psoriasis, Rheumatoid factor positive * ERYTHROCYTE SEDIMENTATION RATE(Performed 01/31/2020) Performed for Inflammatory arthritis, Pain in both hands, Psoriasis, Rheumatoid factor positive * C-REACTIVE PROTEIN(Performed 01/31/2020) Performed for Inflammatory arthritis, Pain in both hands, Psoriasis, Rheumatoid factor positive * COMPREHENSIVE METABOLIC PANEL(Performed 01/31/2020) Performed for Inflammatory arthritis, Pain in both hands, Psoriasis, Rheumatoid factor positive * CBC W AUTO DIFFERENTIAL(Performed 01/31/2020) Performed for Inflammatory arthritis, Pain in both hands, Psoriasis, Rheumatoid factor positive * XR FOOT RIGHT 2VW(Performed 01/31/2020) Performed for Inflammatory arthritis, Pain in both hands, Psoriasis, Rheumatoid factor positive * XR FOOT LEFT 2VW(Performed 01/31/2020) Performed for Inflammatory arthritis, Pain in both hands, Psoriasis, Rheumatoid factor positive * XR CHEST 2VW(Performed 01/31/2020) Performed for Inflammatory arthritis, Pain in both hands, Psoriasis, Rheumatoid factor positive * XR HAND BILAT 1VW(Performed 01/31/2020) Performed for Inflammatory arthritis, Pain in both hands, Psoriasis, Rheumatoid factor positive * MAMMO BILAT SCREENING(Performed 08/05/2019) Performed for Visit for screening mammogram * COMPREHENSIVE METABOLIC PANEL(Performed 06/21/2019) Performed for Preop examination, Essential hypertension * RHEUMATOID FACTOR BLOOD QUANTITATIVE(Performed 03/08/2019) Performed for Nodule of finger, unspecified laterality, Pain in multiple finger joints * TANNER BLOOD SCREEN W/REFLEX TITER(Performed 03/08/2019) Performed for Nodule of finger, unspecified laterality, Pain in multiple finger joints * ERYTHROCYTE SEDIMENTATION RATE(Performed 03/08/2019) Performed for Nodule of finger, unspecified laterality, Pain in multiple finger joints * C-REACTIVE PROTEIN(Performed 03/08/2019) Performed for Nodule of finger, unspecified laterality, Pain in multiple finger joints * PATHOLOGY TISSUE EXAM (STL)(Performed 08/16/2018) Performed for Benign neoplasm of transverse colon, Benign neoplasm of sigmoid colon, Other hemorrhoids, Other fecal abnormalities * ENDOSCOPY, COLON, DIAGNOSTIC(Performed 08/16/2018) Performed for Positive colorectal cancer screening using Cologuard test * MAMMO LEFT DIAGNOSTIC(Performed 07/16/2018) Performed for Abnormal mammogram * COLOGUARD TEST(Performed 07/12/2018) Performed for Screen for colon cancer * MAMMO BILAT SCREENING(Performed 07/05/2018) Performed for Visit for screening mammogram * COMPREHENSIVE METABOLIC PANEL(Performed 06/28/2018) Performed for Essential hypertension * COMPREHENSIVE METABOLIC PANEL(Performed 04/28/2017) Performed for Essential hypertension, Hyperlipidemia, unspecified hyperlipidemia type * LIPID PROFILE(Performed 04/28/2017) Performed for Hyperlipidemia, unspecified hyperlipidemia type * HEPATITIS C ANTIBODY(Performed 04/28/2017) Performed for Need for hepatitis C screening test * STREP A SCREEN - POINT OF CARE (AMB)(Performed 09/30/2016) Performed for Sore throat * MAMMO BILAT SCREENING(Performed 08/01/2016) Performed for Visit for screening mammogram * DEXA BONE DENSITY 2 SITES(Performed 09/03/2015) Performed for Osteoporosis * ECHOCARDIOGRAM STRESS(Performed 03/05/2015) Performed for Chest pain, unspecified chest pain type * ECHOCARDIOGRAM 2D WITH DOPPLER(Performed 02/20/2015) Performed for Chest pain, unspecified chest pain type, HTN (hypertension), benign * LIPID PROFILE(Performed 01/12/2015) Performed for Hyperlipidemia * HEMOGLOBIN A1C(Performed 01/12/2015) Performed for Diabetes mellitus type II, uncontrolled * COMPREHENSIVE METABOLIC PANEL(Performed 01/12/2015) Performed for Essential hypertension * CBC W AUTO DIFFERENTIAL(Performed 01/12/2015) Performed for Essential hypertension * PAP IG RFLX HPV ASCU(Performed 07/21/2014) Performed for Unsatisfactory cervical Papanicolaou smear * MAMMO BILAT SCREENING(Performed 07/17/2014) Performed for Other screening mammogram * PAP IG RFLX HPV ASCU(Performed 05/19/2014) Performed for Well woman exam with routine gynecological exam * MAMMO BILAT SCREENING(Performed 07/15/2013) Performed for Other screening mammogram * PAP IG RFLX HPV ASCU(Performed 05/08/2013) Performed for Well woman exam with routine gynecological exam * COMPREHENSIVE METABOLIC PANEL(Performed 01/09/2013) Performed for Nausea & vomiting * CBC W/O DIFFERENTIAL(Performed 01/09/2013) Performed for Nausea & vomiting * LIPID PROFILE(Performed 09/19/2012) Performed for DM (diabetes mellitus) (HCC) * HEMOGLOBIN A1C(Performed 09/19/2012) Performed for DM (diabetes mellitus) (HCC) * COMPREHENSIVE METABOLIC PANEL(Performed 09/19/2012) Performed for DM (diabetes mellitus) (HCC) * CBC W/O DIFFERENTIAL(Performed 09/19/2012) Performed for DM (diabetes mellitus) (HCC) * MAMMO BILAT SCREENING(Performed 07/12/2012) Performed for Other screening mammogram * HOLTER MONITOR(Performed 05/10/2012) Performed for Palpitations * ECHOCARDIOGRAM 2D WITH DOPPLER(Performed 05/04/2012) Performed for Palpitations * PAP IG RFLX HPV ASCU(Performed 05/03/2012) Performed for Well woman exam with routine gynecological exam * T4 FREE(Performed 04/19/2012) Performed for Other malaise and fatigue * TSH(Performed 04/19/2012) Performed for Other malaise and fatigue * CBC W AUTO DIFFERENTIAL(Performed 04/19/2012) Performed for Palpitations * COMPREHENSIVE METABOLIC PANEL(Performed 04/19/2012) Performed for Palpitations * EKG 12-LEAD(Performed 04/19/2012) Performed for Lightheaded * MAMMO BILAT SCREENING(Performed 07/08/2011) Performed for Other screening mammogram * XR CHEST 2VW(Performed 04/25/2011) Performed for URI (upper respiratory infection) * PAP IG RFLX HPV ASCU(Performed 04/06/2011) Performed for Well female exam with routine gynecological exam * DEXA BONE DENSITY AXIAL SKELETON(Performed 04/06/2011) Performed for Well female exam with routine gynecological exam * MAMMO SCREENING BILATERAL(Performed 07/01/2010) Performed for Screening mammogram, Family history of malignant neoplasm of breast * IMAGING/RADIOLOGY/XRAY RESULTS ORDER(Performed 04/26/2010) * URINALYSIS REFLEX TO MICROSCOPIC NO CULTURE(Performed 04/24/2010) * CT HEAD WO CONTRAST(Performed 04/24/2010) Performed for Headache * COMPREHENSIVE METABOLIC PANEL(Performed 04/24/2010) * CBC W AUTO DIFFERENTIAL(Performed 04/24/2010) * PAP IG RFLX HPV ASCU(Performed 04/05/2010) Performed for Well woman exam with routine gynecological exam * MAMMO SCREENING BILATERAL(Performed 06/29/2009) Performed for Screening Mammogram * DEXA BONE DENSITY AXIAL SKELETON(Performed 04/01/2009) Performed for Osteoporosis * PAP IG RFLX HPV ASCU(Performed 03/24/2009) Performed for Well Woman Exam with Routine Gynecological Exam * MAMMO SCREENING BILATERAL(Performed 06/04/2008) Performed for Screening Mammogram * VITAMIN D 25-HYDROXY(Performed 05/22/2008) Performed for Osteoporosis * VITAMIN D 1,25 DIHYDROXY(Performed 05/22/2008) * DEXA BONE DENSITY AXIAL SKELETON(Performed 05/12/2008) Performed for Routine Gynecological Examination * PAP LB HPV HR DNA(Performed 03/20/2008) * HEMOGLOBIN A1C(Performed 10/23/2007) * TSH(Performed 10/15/2007) * T4 FREE(Performed 10/15/2007) * COMPREHENSIVE METABOLIC PANEL(Performed 10/15/2007) * CBC W AUTO DIFFERENTIAL(Performed 10/15/2007) * XR FOREARM RIGHT 2VW OR MORE(Performed 06/04/2007) Performed for Pain in Limb * PAP IG RFLX HPV ASCU(Performed 03/15/2007) * PAP IG RFLX HPV ASCU(Performed 02/01/2007) Results * MAMMO BILAT SCREENING W IRMA (09/28/2023 11:36 AM CDT) Only the most recent of3 resultswithin the time period is included. Anatomical Region Laterality Modality Breast Bilateral Mammography [...] MLO. Images interpreted with CAD. Following current [facility] protocol, 3D mammographic tomosynthesis images were obtained and reviewed on a dedicated viewing station. FINDINGS: Breast composition: Heterogeneously dense which may obscure small masses. No suspicious microcalcifications, masses or areas of architectural distortion. Jeremiah Peterson MD MAMMO ORDERABLES * TSH REFLEX FREE T4 (09/12/2023 9:41 AM CDT) Only the most recent of2 resultswithin the time period is included. TSH 0.971 0.350 - 4.940 uIU/mL [facility] INSURANCE BILL Comment: FASTING Blood BLOOD SPECIMEN / Unknown 09/12/2023 9:41 AM CDT 09/12/2023 Narrative Resulting Agency Comment Lab Testing performed at: [facility] [address] [place] [phone] Paulette Vega PHYSICAL THERAPY ASSISTANT INSTRUCTOR-PARTS PERSON LAB - CHEMISTRY O RDERABLES [facility] INSURANCE BILL [address] [place] [address] * (ABNORMAL) CBC WITH DIFFERENTIAL (09/12/2023 9:41 AM CDT) Only the most recent of9 resultswithin the time period is included. Pathologist [facility] WBC 7.8 4.0 - 10.7 x10E9/L [facility] INSURANCE BILL RBC 4.01 3.90 - 5.20 x10E12/L [facility] INSURANCE BILL Hemoglobin 12.7 11.9 - 15.8 g/dL [facility] INSURANCE BILL Hematocrit 39.0 34.8 - 46.1 % [facility] INSURANCE BILL MCV 97.3 80.0 - 98.0 fL [facility] INSURANCE BILL MCH 31.7 26.7 - 33.6 pg [facility] INSURANCE BILL MCHC 32.6 31.7 - 36.3 g/dL [facility] INSURANCE BILL RDW 12.8 11.3 - 14.8 % [facility] INSURANCE BILL Platelet Count 264 150 - 420 x10E9/L [facility] INSURANCE BILL Comment:MPV (CS) 10.5 fL 7. 8-11.4 Granulocytes % 75.2(H) 41.0 - 74.0 % [facility] INSURANCE BILL Lymphocytes % 15.0(L) 17.0 - 47.0 % [facility] INSURANCE BILL Monocytes % 7.9 3.0 - 11.0 % [facility] INSURANCE BILL Eosinophils % 1.0 0.0 - 7.0 % [facility] INSURANCE BILL Basophils % 0.6 0.0 - 1.6 % [facility] INSURANCE BILL Granulocytes Absolute 5.83 1.60 - 7.50 x10E9/L [facility] INSURANCE BILL Lymphocytes Absolute 1.16 1.00 - 4.40 x10E9/L [facility] INSURANCE BILL Monocytes Absolute 0.61 0.15 - 1.00 x10E9/L [facility] INSURANCE BILL Eosinophils Absolute 0.08 0.00 - 0.60 x10E9/L [facility] INSURANCE BILL Basophils Absolute 0.05 0.00 - 0.13 x10E9/L [facility] INSURANCE BILL Immature Granulocytes 0.3 0.0 - 1.0 % [facility] INSURANCE BILL Comment:FASTING Blood BLOOD SPECIMEN / Unknown 09/12/2023 9:41 AM CDT 09/12/2023 Narrative Resulting Agency Comment Lab Testing performed at: [facility] [address] [place] [id number] Paulette FRAIRE LAB - HEMATOLOGY ORDERABLES [facility] INSURANCE BILL [address] [place] [address] * (ABNORMAL) COMPREHENSIVE METABOLIC PANEL (09/12/2023 9:41 AM CDT) Only the most recent of16 resultswithin the time period is included. Glucose 103 70 - 105 mg/dL [facility] INSURANCE BILL BUN 15 7 - 26 mg/dL [facility] INSURANCE BILL Creatinine 1.08 0.57 - 1.11 mg/dL [facility] INSURANCE BILL eGFR by CKD-EPI 54(L) >=90 mL/min/1.7 3 m2 [facility] INSURANCE BILL Sodium 140 136 - 145 mmol/L [facility] INSURANCE BILL Potassium 4.6 3.5 - 5.1 mmol/L [facility] INSURANCE BILL Chloride 105 98 - 107 mmol/L [facility] INSURANCE BILL CO2 26 22 - 29 mmol/L [facility] INSURANCE BILL Calcium 9.8 8.4 - 10.4 mg/dL [facility] INSURANCE BILL Protein Total 6.8 6.4 - 8.3 gm/dL [facility] INSURANCE BILL Albumin 3.8 3.4 - 5.0 gm/dL [facility] INSURANCE BILL Bilirubin Total 0.5 0.2 - 1.2 mg/dL [facility] INSURANCE BILL Alkaline Phosphatase 67 40 - 150 U/L [facility] INSURANCE BILL AST 23 5 - 34 U/L [facility] INSURANCE BILL ALT 15 0 - 55 U/L [facility] INSURANCE BILL Comment:FASTING Blood BLOOD SPECIMEN / Unknown 09/12/2023 9:41 AM CDT 09/12/2023 Narrative Resulting Agency Comment Lab Testing performed at: [facility] [address] [place] [phone] Paulette Vega APRN-PARTS PERSON LAB - CHEMISTRY O RDERABLES [facility] INSURANCE BILL [address] [place] [address] * (ABNORMAL) LIPID PROFILE (09/12/2023 9:41 AM CDT) Only the most recent of8 resultswithin the time period is included. Cholesterol 223(H) <200 mg/dL [facility] INSURANCE BILL Triglycerides 74 <150 mg/dL [facility] INSURANCE BILL HDL Cholesterol 73 >40 mg/dL [facility] INSURANCE BILL VLDL Calculated 15 <=30 mg/dL [facility] INSURANCE BILL LDL Calculated 135(H) <130 mg/dL [facility] INSURANCE BILL Comment:FASTING Blood BLOOD SPECIMEN / Unknown 09/12/2023 9:41 AM CDT 09/12/2023 Narrative Resulting Agency Comment Lab Testing performed at: [facility] [address] [place] [phone] Paulette Vega APRN-PARTS PERSON LAB - CHEMISTRY O RDERABLES [facility] INSURANCE BILL [address] [place] [address] * ECHO COMPLETE (04/25/2023 9:12 AM CDT) LVOT stroke vol 75.36 mL [facility] CV FUJI PACS LVOT stroke vol index 42.56 mL/m2 [facility] FUJI PACS LV stroke vol 2D teich 59.637 ml [facility]I PACS LV Stroke Index 2D Teich 33.68 mL/m2 [facility]I PACS AV envelope time 268 ms SSM CV FUJI PACS LVOT envelope time 291 ms SSM CV FUJI PACS LVIDd 4.44 3.8 - 5.2 cm SSM CV FUJI PACS IVSd MM 0.984 0.6 - 0.9 cm SSM CV FUJI PACS LVIDs 2.81 2.2 - 3.5 cm SSM CV FUJI PACS IVSd 2D 1.007 0.6 - 0.9 cm SSM CV FUJI PACS LVPWd 1.20 0.6 - 0.9 cm SSM CV FUJI PACS LVPWs M-Mode 1.096 cm SSM CV FUJI PACS Fractional Shortening 2D 37 28 - 44 % SSM CV FUJI PACS LV ESV 2D 29.722 14 - 42 mL SSM CV FUJI PACS LV ESV index 2D 16.79 8 - 24 mL/m2 SSM CV FUJI PACS LV EDV 2D 89.359 46 - 106 mL SSM CV FUJI PACS LV EDV index 2D 50.47 29 - 61 mL/m2 SSM CV FUJI PACS LVOT diam 2.2 cm SSM CV FUJ I PACS LVOT area 3.79 cm2 SSM CV FUJ I PACS LV RWT 0.543 SSM CV FUJ I PACS IVS/LVPW 0.837 SSM CV FUJ I PACS LV mass m-mode 171.587 67 - 162 g SSM CV FUJI PACS LV mass index m-mode 96.91 43 - 95 g/m2 SSM CV FUJI PACS LV mass 2D 172.172 66 - 150 g SSM CV FUJI PACS LV mass index 2D 97.24 44 - 88 g/m2 SSM CV FUJI PACS MV E pk yang 77.338 cm/s SSM CV F UJI PACS MV avg E/e' ratio 13.497 SS M CV FUJI PACS MV A pk yang 103.736 cm/s SSM CV F UJI PACS MV E A ratio 0.75 SSM CV FUJI PACS MV E' lateral yang 5.965 cm/s SS M CV FUJI PACS MV DT 214 ms SSM CV FUJ I PACS MV E' septal yang 5.513 cm/s SSM CV FUJI PACS MV E/e' septal 14.029 SSM C V FUJI PACS MV E/e' lateral 12.966 SSM CV FUJI PACS TR pk yang 302.0 cm/s SSM CV FUJ I PACS LVOT pk yang 1.08 m/s SSM CV F UJI PACS LVOT mn yang 0.68 m/s SSM CV F UJI PACS LVOT mn grad 2.1 mmHg SSM CV FUJI PACS GLS -24.4 % SSM CV FUJ I PACS AA pk sys strain -32.5 % SSM CV FUJI PACS AAS pk sys strain -37.2 % SS M CV FUJI PACS AI pk sys strain -34.0 % SSM CV FUJI PACS AL pk sys strain -31.7 % SSM CV FUJI PACS AP pk sys strain -32.2 % SSM CV FUJI PACS pk sys strain -31.2 % SSM CV FUJI PACS BA pk sys strain -16.4 % SSM CV FUJI PACS BAS pk sys strain -23.1 % SS M CV FUJI PACS BI pk sys strain -16.6 % SSM CV FUJI PACS BL pk sys strain -20.5 % SSM CV FUJI PACS BS pk sys strain -12.9 % SSM CV FUJI PACS GPLS A2C -24.0 % SSM CV FUJ I PACS GPLS A4C -23.5 % SSM CV FUJ I PACS GPLS APLAX -25.6 % SSM CV FU JI PACS MA pk sys strain -21.9 % SSM CV FUJI PACS MAS pk sys strain -30.1 % SS M CV FUJI PACS CT pk sys strain -23.4 % SSM CV FUJI PACS ML pk sys strain -24.5 % SSM CV FUJI PACS MP pk sys strain -20.0 % SSM CV FUJI PACS MS pk sys strain -20.2 % SSM CV FUJI PACS LA area A4C 15.402 20 cm2 SSM CV F UJI PACS LA size 3.748 2.7 - 3.8 cm SSM CV FUJI PACS LA vol BP A-L 49.341 mL SSM CV FUJI PACS RV-otto basal diam 2.9 2.5 - 4.1 cm [facility] CV FUJI PACS RV-otto longitudinal diam 5.5 5.9 - 8.3 cm [facility] CV FUJI PACS RVIDd 3.2 cm [facility] CV FUJ I PACS TAPSE 2.256 1.7 cm [facility] CV FUJ I PACS RA area 10.259 cm2 [facility] CV FUJ I PACS AV mn grad 7 mmHg [facility] CV FU JI PACS AV pk grad 11 mmHg [facility] CV FU JI PACS AV mn yang 1.28 m/s [facility] CV FUJ I PACS AV pk yang 1.69 m/s [facility] CV FUJ I PACS AV VTI 34.225 cm [facility] CV FUJ I PACS LVOT pk grad 4.698 mmHg [facility] CV FUJI PACS LVOT VTI 19.893 cm [facility] CV FUJ I PACS AV area cont VTI 2.2 cm2 [facility] CV FUJI PACS AV area pk yang 2.4 cm2 [facility] C V FUJI PACS AV Doppler yang index pk yang 0.641 [facility] CV FUJI PACS AV closure time 0.4 s [facility] CV FUJI PACS Dimensionless Index 0.581 [facility] CV FUJI PACS AV PHT 342 ms [facility] CV FUJ I PACS AV pk yang regurg 327.796 cm/s [facility] CV FUJI PACS MV pk yang regurg 581.309 cm/s [facility] CV FUJI PACS MV mn grad 2 mmHg [facility] CV FU JI PACS MV pk grad 4 mmHg [facility] CV FU JI PACS MV mn yang 0.58 m/s [facility] CV FUJ I PACS MV pk yang 103.736 cm/s [facility] CV FUJ I PACS MV PHT 66 ms [facility] CV FUJ I PACS MV area PHT 3.34 cm2 [facility] CV F UJI PACS MV area cont eq 3.46 cm2 [facility] CV FUJI PACS MV VTI 21.784 cm [facility] CV FUJ I PACS MV decel slope 379.375 cm/s2 [facility] C V FUJI PACS sPAP 39.5 mmHg [facility] CV FUJ I PACS RVSP 39.5 mmHg [facility] CV FUJ I PACS RAP 3.0 mmHg [facility] CV FUJ I PACS TR pk grad 36 mmHg [facility] CV FU JI PACS dPAP 6.8 mmHg [facility] CV FUJ I PACS SD pk yang 97.381 cm/s [facility] CV FUJ I PACS SD pk grad 4 mmHg [facility] CV FU JI PACS PV pk yang 88.53 cm/s [facility] CV FUJ I PACS PV pk grad 3 mmHg [facility] CV FU JI PACS Aortic arch 3.408 cm [facility] CV F UJI PACS Sinus of Valsalva 2.97 cm SS M CV FUJI PACS Sinus of valsalva index 1.68 cm/m2 [facility] CV FUJI PACS IVC size 1.7 cm [facility] CV FUJ I PACS Fractional Shortening M-Mode 37 28 - 44 % [facility] CV FUJ I PACS BSA 1.4884880 m2 [facility] CV FUJ I PACS LA ESV A4C MOD Index 25 ml/m2 [facility] CV FUJI PACS LA ESV A2C MOD Index 24 ml/m2 [facility] CV FUJI PACS Ao Root Diam Index (2D) 1.678 cm [facility] CV FUJI PACS LA AREA (2C) 16.014 [facility] CV FUJI PACS EF M-Mode 67 % [facility] CV FUJ I PACS AV decel slope regurg 278.317 cm/s2 [facility] CV FUJI PACS LA Size 3.748 cm [facility] CV FUJ I PACS LVIDs index 1.59 1.3 - 2.1 cm/m2 [facility] CV FUJI PACS LV LVIDd index 2.51 2.3 - 3.1 cm/m2 [facility] CV FUJI PACS Systolic Blood Pressure 115 [facility] CV FUJI PACS Anatomical Region Laterality Modality Ultrasound Narrative 04/25/2023 1:18 PM CDT Left Ventricle: Left ventricle size is normal. Mildly increased wall thickness. Normal systolic function with a visually estimated EF of 55 - 60%. Normal wall motion. Grade I diastolic dysfunction with normal left atrial pressure. Left Atrium: Left atrium size is upper limits of normal. Mitral Valve: Mild regurgitation. Tricuspid Valve: [id number]-arrf regurgitation. The pulmonary artery systolic pressure is borderline elevated. Estimated RVSP is 39.5 mmHg. Left Ventricle Left ventricle size is normal. Mildly increased wall thickness. Normal systolic function with a visually estimated EF of 55 - 60%. Normal wall motion. Grade I diastolic dysfunction with normal left atrial pressure. Right Ventricle Right ventricle size is normal. Normal systolic function. Left Atrium Left atrium size is upper limits of normal. Right Atrium Right atrium size is normal. IVC/SVC IVC diameter is less than or equal to 21 mm and decreases greater than 50% during inspiration; therefore the estimated right atrial pressure is normal (~3 mmHg). Mitral Valve Valve structure is normal. No restricted motion. Mild regurgitation. No stenosis. Tricuspid Valve Valve structure is normal. No restricted motion. Jwnuq-ou-edjs regurgitation. The pulmonary artery systolic pressure is borderline elevated. Estimated RVSP is 39.5 mmHg. No stenosis. Aortic Valve Valve structure is trileaflet. No restricted motion. No regurgitation. No stenosis. Pulmonic Valve Valve structure is normal. No restricted motion. No regurgitation. No stenosis. Ascending Aorta Normal sized sinus of Valsalva (aortic root) and ascending aorta. Pericardium No pericardial effusion. Study Details Study quality was adequate. A complete 2D, color Doppler, spectral Doppler and M-mode echocardiogram was performed. The apical, parasternal, subcostal and suprasternal views were obtained. Patient exhibited sinus rhythm. Procedure Note Godfrey Vazquez MD - 04/25/2023 Left Ventricle: Left ventricle size is normal. Mildly increased wallthickness. Normal systolic function with a visually estimated EF of 55 -60%. Normal wall motion. Grade I diastolic dysfunction with normal leftatrial pressure. Left Atrium: Left atrium size is upper limits of normal. Mitral Valve: Mild regurgitation. Tricuspid Valve: Pfyws-le-zqpy regurgitation. The pulmonary arterysystolic pressure is borderline elevated. Estimated RVSP is 39.5 mmHg. Chaparro Joseph MD ECHO CUPID * C-REACTIVE PROTEIN (06/16/2021 10:44 AM INSURANCE ADJUSTOR) Only the most recent of3 resultswithin the time period is included. C-Reactive Protein 0.37 <=0.50 mg/dL [facility] INSURANCE BILL Comment: FASTING Blood BLOOD SPECIMEN / Unknown 06/16/2021 10:44 AM INSURANCE ADJUSTOR 06/16/2021 Narrative Resulting Agency Comment Lab Testing performed at: [facility] [address] [place] [id number] Elliot Dodge MD LAB - CHEMISTRY ORDE RABLES [facility] INSURANCE BILL [address] [place] [address] * ERYTHROCYTE SEDIMENTATION RATE (06/16/2021 10:44 AM INSURANCE ADJUSTOR) Only the most recent of3 resultswithin the time period is included. Pathologist [facility] [place] Erythrocyte Sedimentation Rate Westergren 13 0 - 30 MM/HR [facility] INSURANCE BILL Comment:FASTING Blood BLOOD SPECIMEN / Unknown 06/16/2021 10:44 AM INSURANCE ADJUSTOR 06/16/2021 Narrative Resulting Agency Comment Lab Testing performed at: [facility] [address] [place] [phone] Elliot Dodge MD LAB - HEMATOLOGY ORD ERABLES [facility] INSURANCE BILL [address] [place] [address] * NM HEPATOBILIARY W CCK EF (12/07/2020 2:27 PM CDT) Anatomical Region Laterality Modality Abdomen Nuclear Medicine 12/07/2020 3:08 PM CDT Impressions 12/07/2020 3:10 PM CDT Gallbladder ejection fraction of 38.7% which is within the lower limits of normal. No biliary obstruction or other abnormality identified. *Reading Radiologist: Suresh Orta on 12/07/2020 at 3:10 PM Narrative 12/07/2020 3:10 PM CDT Nuclear medicine hepatobiliary scan: History: Abdominal pain (more notably in the right upper quadrant). Evaluation for gallbladder dysfunction. Technique: Following intravenous administration of 5.0 mCi Tc-99m mebrofenin, hepatobiliary imaging was performed on 12/07/2020. Following oral administration of 8 ounces of Ensure Plus, a gallbladder ejection fraction was also obtained. Comparison is made to an ultrasound abdomen (complete) study on 12/02/2020. Findings: There is prompt uptake of activity by the liver with prompt excretion. The common bile duct is first visualized at 15 minutes. The gallbladder is first visualized at 30 minutes. The small bowel is first visualized at 15 minutes. There is continued excretion from the liver with increasing concentration within the gallbladder over the course of the study. There is no biliary obstruction identified. The calculated gallbladder ejection fraction is 38.7% (normal, 35% or greater), which is within the lower limits of normal. Procedure Note Suresh Orta MD - 12/07/2020 Nuclear medicine hepatobiliary scan: History: Abdominal pain (more notably in the right upper quadrant). Evaluation for gallbladder dysfunction. Technique: Following intravenous administration of 5.0 mCi Tc-99m mebrofenin, hepatobiliary imaging was performed on 12/07/2020. Following oral administration of 8 ounces of Ensure Plus, a gallbladder ejection fraction was also obtained. Comparison is made to an ultrasound abdomen (complete) study on 12/02/2020. Findings: There is prompt uptake of activity by the liver with prompt excretion. The common bile duct is first visualized at 15 minutes. The gallbladder is first visualized at 30 minutes. The small bowel is first visualized at 15 minutes. There is continued excretion from the liver with increasing concentration within the gallbladder over the course of the study. There is no biliary obstruction identified. The calculated gallbladder ejection fraction is 38.7% (normal, 35% or greater), which is within the lower limits of normal. IMPRESSION Gallbladder ejection fraction of 38.7% which is within the lower limits of normal. No biliary obstruction or other abnormality identified. *Reading Radiologist: Suresh Orta on 12/07/2020 at 3:10 PM Jeremiah Peterson MD NM ORDERABLES * US ABDOMEN COMPLETE (12/02/2020 10:09 AM CDT) Anatomical Region Laterality Modality Abdomen Ultrasound 12/02/2020 10:1 6 AM CDT Impressions 12/02/2020 10:22 AM CDT No abnormality identified. *Reading Radiologist: Suresh Orta on 12/02/2020 at 10:22 AM Narrative 12/02/2020 10:22 AM CDT Ultrasound abdomen (complete): History: Right upper quadrant pain. Hyperlipidemia. Technique: Ultrasound evaluation of the abdomen (complete) was performed on 12/02/2020. No relevant prior study is available. Findings: The liver is within normal limits of size, shape and echogenicity with no focal mass or intrahepatic biliary dilatation identified. There are no gallstones. The gallbladder wall is of normal thickness (1-2 mm) and the common bile duct of normal caliber (4 mm). There is no pericholecystic fluid identified. The pancreas is within normal limits of size, shape and echogenicity with no focal mass. The spleen is within normal limits of size, shape and echogenicity with no focal mass. The kidneys are within normal limits of size, shape and echogenicity with no focal mass. The right kidney measures 8.9 x 4.8 x 4.7 cm and the left kidney 10.0 x 5.5 x 5.2 cm in diameter. There are no echogenicities to suggest renal stones. There is no hydronephrosis. The visualized portions of the abdominal aorta and inferior vena cava are unremarkable. Procedure Note Suresh Orta MD - 12/02/2020 Ultrasound abdomen (complete): History: Right upper quadrant pain. Hyperlipidemia. Technique: Ultrasound evaluation of the abdomen (complete) was performed on 12/02/2020. No relevant prior study is available. Findings: The liver is within normal limits of size, shape and echogenicity with no focal mass or intrahepatic biliary dilatation identified. There are no gallstones. The gallbladder wall is of normal thickness (1-2 mm) and the common bile duct of normal caliber (4 mm). There is no pericholecystic fluid identified. The pancreas is within normal limits of size, shape and echogenicity with no focal mass. The spleen is within normal limits of size, shape and echogenicity with no focal mass. The kidneys are within normal limits of size, shape and echogenicity with no focal mass. The right kidney measures 8.9 x 4.8 x 4.7 cm and the left kidney 10.0 x 5.5 x 5.2 cm in diameter. There are no echogenicities to suggest renal stones. There is no hydronephrosis. The visualized portions of the abdominal aorta and inferior vena cava are unremarkable. IMPRESSION No abnormality identified. *Reading Radiologist: Suresh Orta on 12/02/2020 at 10:22 AM Jeremiah Peterson MD US ORDERABLES * AMYLASE BLOOD (12/01/2020 11:52 AM CDT) Pathologist [facility] [place] Amylase 48 25 - 125 U/L [facility] INSURANCE BILL Comment: FASTING Blood BLOOD SPECIMEN / Unknown 12/01/2020 11:52 AM CDT 12/01/2020 Narrative Resulting Agency Comment Lab Testing performed at: [address] [place] [phone] Jeremiah Peterson MD LAB - CHEMISTRY KARLA [facility] Organization Address City/State/ZIP Co de Phone Number [facility] INSURANCE BILL [address] [place] [address] * (ABNORMAL) SARS-COV-2 (COVID-19)+INFLU A+B AG (AMB) POC (09/07/2020 2:35 PM INSURANCE ADJUSTOR) [facility] Influenza A Antigen Rapid Negative Negative [facility] [employer] Influenza B Antigen Rapid Positive(A) Negative [facility] [employer] SARS-CoV-2 Ag Negative Negative [facility] [employer] COVID Internal Control Acceptable Acceptable [facility] [employer] Lot # [id number] [facility] [employer] Expiration Date 03/30/22 [facility] [employer] Instrument Serial Number [id number] [facility] [employer] Microbiology SPECIMEN FROM NASAL FOSSAE / Unknown 09/07/2020 2:35 PM INSURANCE ADJUSTOR Narrative [facility] - 09/07/2020 2:35 PM INSURANCE ADJUSTOR SARS-CoV-2 antigen testing is authorized for use with nasal (Veritor, BinaxNOW, or Laly) or nasopharyngeal (Laly) swabs collected from individuals who are suspected of COVID-19 infection by their healthcare provider within the first five days of onset of symptoms. False-positive SARS-CoV-2 test results are more likely to occur when disease prevalence is low (less than 1%). False-negative SARS-CoV-2 test results are more likely to occur when disease prevalence is high (greater than 10%). This test has been authorized by the Food and Drug administration (FDA)under an Emergency Use Authorization (EUA). This test is only authorized for the duration of time the declaration that circumstances exist justifying the authorization of emergency use of in vitro diagnostic tests for detection of SARS-CoV-2 virus and/or diagnosis of COVID-19 infection under section 564(b)(1) of the Act, 21 U.S.C 360bbb-3 (b)(1), unless the authorization is terminated or revoked sooner. Fact Sheets for this EUA assay are available upon request. Negative results should be treated as presumptive and confirmation with a molecular assay, if necessary, for patient management, may be performed. Negative results do not rule out COVID-19 and should not be used as the sole basis for treatment or patient management decisions, including infection control decisions. Negative results should be considered in the context of a patient's recent exposures, history and the presence of clinical signs and symptoms consistent with COVID-19. Emily Seay PA-C LAB - POINT OF CARE ORDERABLES Performing Organization Address City/State/[facility] Co de Phone Number [facility] [address] [phone] * MAMMO BILAT SCREENING (08/10/2020 11:08 AM INSURANCE ADJUSTOR) Only the most recent of8 resultswithin the time period is included. Anatomical Region Laterality Modality Breast Bilateral Mammography 08/10/2020 2:49 PM INSURANCE ADJUSTOR Impressions 08/10/2020 2:49 PM INSURANCE ADJUSTOR No mammographic evidence of malignancy. BI-RADS Category 1: Negative Mammogram. Recommendation: Resume routine yearly mammography schedule for women over age 40 or return sooner if clinically indicated. *Reading Radiologist: Lucía Goldman on 08/10/2020 at 2:49 PM Narrative 08/10/2020 2:49 PM INSURANCE ADJUSTOR Bilateral mammography. Most recent comparison: 2019 History: Screening mammogram. Technique: Bilateral breasts. Mammography views included: CC and MLO. Images interpreted with CAD. Following current [facility] protocol, 3D mammographic tomosynthesis images were obtained and reviewed on a dedicated viewing station. FINDINGS: Breast composition: Heterogeneously dense which may obscure small masses. No suspicious calcifications, masses, or areas of architectural distortion. Jeremiah Peterson MD MAMMO ORDERABLES * CYCLIC CITRUL PEPTIDE ANTIBODY IGG/IGA (CCP) (01/31/2020 10:44 AM CDT) CCP Antibodies IgG/IgA 12 0 - 19 units [facility] INSURANCE BILL Comment: Negative <20 Weak positive 20 - 39 Moderate positive 40 - 59 Strong positive >59 FASTING Blood BLOOD SPECIMEN / Unknown 01/31/2020 10:44 AM CDT 01/31/2020 Narrative Resulting Agency Comment Lab Testing performed at: [address] [phone] Elliot Dodge MD LAB - SEROLOGY ORDER SUNSHINE Performing Organization Address City/[facility]/ZIP Co de Phone Number [facility] INSURANCE BILL [address] [place] [address] * URIC ACID BLOOD (01/31/2020 10:44 AM CDT) Uric Acid 5.7 2.6 - 6.0 mg/dL [facility] INSURANCE BILL Comment:FASTING Blood BLOOD SPECIMEN / Unknown 01/31/2020 10:44 AM CDT 01/31/2020 Narrative Resulting Agency Comment Lab Testing performed at: [facility] [place] [address] [place] [phone] Elliot Dodge MD LAB - CHEMISTRY ORDE RABLES [facility] INSURANCE BILL [address] [place] [address] * RHEUMATOID FACTOR BLOOD QUANTITATIVE (01/31/2020 10:44 AM CDT) Only the most recent of2 resultswithin the time period is included. Rheumatoid Factor 27 <30 IU/mL [facility] INSURANCE BILL Comment:FASTING Blood BLOOD SPECIMEN / Unknown 01/31/2020 10:44 AM CDT 01/31/2020 Narrative Resulting Agency Comment Lab Testing performed at: [facility] [address] [facility] [phone] Elliot Dodge MD LAB - CHEMISTRY KARLA NUNEZ Performing Organization Address [facility]/ZIP Co de Phone Number [facility] INSURANCE BILL [address] [place] [address] * TANNER BLOOD SCREEN W/REFLEX TITER (01/31/2020 10:44 AM CDT) Only the most recent of2 resultswithin the time period is included. TANNER Negative Negative [facility] INSURANCE BILL Comment: Methodology: Indirect Immunofluorescence Assay (IFA) [facility] Hep-2-Gamma cells. FASTING Blood BLOOD SPECIMEN / Unknown 01/31/2020 10:44 AM CDT 01/31/2020 Narrative Resulting Agency Comment Lab Testing performed at: [facility] [address] [facility] [phone] Elliot Dodge MD LAB - CHEMISTRY KARLA NUNEZ Performing Organization Address City/[facility]/ZIP Co de Phone Number [facility] INSURANCE BILL [address] [place] [address] * SS-B (SJOGREN'S) ANTIBODY (01/31/2020 10:44 AM CDT) Sjogren's Antibodies (SSB) <0.2 0.0 - 0.9 AI [facility] INSURANCE BILL Comment:FASTING Blood BLOOD SPECIMEN / Unknown 01/31/2020 10:44 AM CDT 01/31/2020 Narrative Resulting Agency Comment Lab Testing performed at: [facility] [address] [facility] [phone] Elliot Dodge MD LAB - CHEMISTRY KARLA NUNEZ [facility] INSURANCE BILL [address] [place] [address] * SS-A (SJOGREN'S) ANTIBODY (01/31/2020 10:44 AM CDT) Pathologist [facility] [place] Sjogren's Antibodies (SSA) <0.2 0.0 - 0.9 AI [facility] INSURANCE BILL Comment:FASTING Blood BLOOD SPECIMEN / Unknown 01/31/2020 10:44 AM CDT 01/31/2020 Narrative Resulting Agency Comment Lab Testing performed at: [facility] [address] [facility] [phone] Elliot Dodge MD LAB - CHEMISTRY KARLA NUNEZ [facility] INSURANCE BILL [address] [place] [address] * CK BLOOD (01/31/2020 10:44 AM CDT) [facility] CK 52 29 - 168 U/L [facility] INSURANCE BILL Comment:FASTING Blood BLOOD SPECIMEN / Unknown 01/31/2020 10:44 AM CDT 01/31/2020 Narrative Resulting Agency Comment Lab Testing performed at: [address] [place] [phone] Elliot Dodge MD LAB - CHEMISTRY KARLA NUNEZ [facility] INSURANCE BILL [address] [place] [address] * HEPATITIS SCREEN ACUTE (01/31/2020 10:44 AM CDT) Pathologist [facility] [place] Hepatitis A Virus Antibody IgM Non Reactive [...] Resulting Agency Comment Lab Testing performed at: [facility] [address] [place] [phone] Elliot Dodge MD LAB - CHEMISTRY KARLA NUNEZ [facility] INSURANCE BILL [address] [place] [address] * XR FOOT RIGHT 2VW (01/31/2020 10:08 AM CDT) Anatomical Region Laterality Modality Ankle / Foot Radiographic Yamilet ging 01/31/2020 10:4 3 AM CDT Impressions 01/31/2020 10:57 AM CDT Moderate narrowing of the DIP joints of the right second through fifth toes can be related to osteoarthritis. Moderate osteopenia is noted. Moderate narrowing of the talonavicular articulation and calcaneocuboid joint is a nonspecific finding. This could be related to degenerative change or to an inflammatory arthritis. *Reading Radiologist: Kristian Lopez on 01/31/2020 at 10:57 AM Narrative 01/31/2020 10:57 AM CDT Right foot 2 views HISTORY: Right foot pain FINDINGS: Moderate osteopenia. Moderate narrowing of the DIP joints of the right second through fourth toes. There is bony fusion of the DIP joint of the right fifth toe. Osteopenia in the medial aspect of the fifth metatarsal head is felt to be related to an anatomic variation as opposed to a bone erosion. Moderate narrowing of the talonavicular articulation and calcaneocuboid joint is noted. Procedure Note Kristian Lopez MD - 01/31/2020 Right foot 2 views HISTORY: Right foot pain FINDINGS: Moderate osteopenia. Moderate narrowing of the DIP joints of the right second through fourth toes. There is bony fusion of the DIP joint of the right fifth toe. Osteopenia in the medial aspect of the fifth metatarsal head is felt to be related to an anatomic variation as opposed to a bone erosion. Moderate narrowing of the talonavicular articulation and calcaneocuboid joint is noted. IMPRESSION Moderate narrowing of the DIP joints of the right second through fifth toes can be related to osteoarthritis. Moderate osteopenia is noted. Moderate narrowing of the talonavicular articulation and calcaneocuboid joint is a nonspecific finding. This could be related to degenerative change or to an inflammatory arthritis. *Reading Radiologist: Kristian Lopez on 01/31/2020 at 10:57 AM Elliot Dodge MD DIAGNOSTIC IMAGING O RDERABLES * XR FOOT LEFT 2VW (01/31/2020 10:08 AM CDT) Anatomical Region Laterality Modality Ankle / Foot Radiographic Aymilet ging 01/31/2020 10:4 4 AM CDT Impressions 01/31/2020 11:00 AM CDT Moderate degenerative change at the DIP joints of the left second through fourth toes. Moderate narrowing of the talonavicular articulation and calcaneocuboid joint is a nonspecific finding. This can be related to degenerative change or to an inflammatory arthritis. *Reading Radiologist: Kristian Lopez on 01/31/2020 at 11:00 AM Narrative 01/31/2020 11:00 AM CDT Left foot 2 views HISTORY: Left foot pain FINDINGS: Moderate osteopenia. Moderate degenerative change is seen at the DIP joints of the third, fourth, and second toes. There is bony fusion of the distal middle phalanges of the fifth toe. A type I accessory navicular is noted. No fracture or bone erosion is seen. Moderate narrowing of the talonavicular articulation and calcaneocuboid joint is noted. Procedure Note Kristian Lopez MD - 01/31/2020 Left foot 2 views HISTORY: Left foot pain FINDINGS: Moderate osteopenia. Moderate degenerative change is seen at the DIP joints of the third, fourth, and second toes. There is bony fusion of the distal middle phalanges of the fifth toe. A type I accessory navicular is noted. No fracture or bone erosion is seen. Moderate narrowing of the talonavicular articulation and calcaneocuboid joint is noted. IMPRESSION Moderate degenerative change at the DIP joints of the left second through fourth toes. Moderate narrowing of the talonavicular articulation and calcaneocuboid joint is a nonspecific finding. This can be related to degenerative change or to an inflammatory arthritis. *Reading Radiologist: Kristian Lopez on 01/31/2020 at 11:00 AM Elliot Dodge MD DIAGNOSTIC IMAGING O RDERABLES * XR CHEST 2VW (01/31/2020 10:07 AM CDT) Only the most recent of2 resultswithin the time period is included. Anatomical Region Laterality Modality Chest Radiographic Yamilet ging 01/31/2020 10:3 4 AM CDT Impressions 01/31/2020 10:35 AM CDT No active disease. No radiographic evidence of pulmonary fibrosis or interstitial lung changes. *Reading Radiologist: Juan R Rockwell on 01/31/2020 at 10:35 AM Narrative 01/31/2020 10:35 AM CDT PROCEDURE TITLE: XR CHEST 2VW*[id number] HISTORY: Unspecified osteoarthritis, unspecified site RELEVANT COMPARISON: 2010 ADDITIONAL HISTORY: Possible inflammatory arthropathy. FINDINGS: Calcified pulmonary granuloma are present. Visualized lungs are otherwise clear without pneumothorax, pleural effusion or consolidation. No appreciable cardiomegaly with this imaging modality. Aortic arterial atherosclerotic disease noted. Mild degenerative disc changes but no evidence of spinal inflammatory arthropathy on 2 view chest x-ray. Procedure Note Uche Rockwell MD - 01/31/2020 PROCEDURE TITLE: XR CHEST 2VW*[id number] HISTORY: Unspecified osteoarthritis, unspecified site RELEVANT COMPARISON: 2010 ADDITIONAL HISTORY: Possible inflammatory arthropathy. FINDINGS: Calcified pulmonary granuloma are present. Visualized lungs are otherwise clear without pneumothorax, pleural effusion or consolidation. No appreciable cardiomegaly with this imaging modality. Aortic arterial atherosclerotic disease noted. Mild degenerative disc changes but no evidence of spinal inflammatory arthropathy on 2 view chest x-ray. IMPRESSION No active disease. No radiographic evidence of pulmonary fibrosis or interstitial lung changes. 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 Moderate degenerative change at both first CMC articulations. 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 *Reading Radiologist: Kristian Lopez on 01/31/2020 at 10:52 AM Narrative 01/31/2020 10:52 AM CDT Bilateral hands single view HISTORY: Hand pain and swelling FINDINGS: Moderate osteopenia. There is moderate degenerative change at the right first CMC articulation. Mild degenerative change is seen at the IP joint of the right thumb. There is evidence of moderate to severe erosive osteoarthritis of the DIP joints of the right index finger, middle finger, and ring finger. There is bony fusion of the DIP joint of the right fifth finger. Moderate degenerative change is seen at the left first CMC articulation. There is evidence of moderate to severe erosive osteoarthritis involving the DIP joints of the left second through fifth fingers. Procedure Note Kristian Lopez MD - 01/31/2020 Bilateral hands single view HISTORY: Hand pain and swelling FINDINGS: Moderate osteopenia. There is moderate degenerative change at the right first CMC articulation. Mild degenerative change is seen at the IP joint of the right thumb. There is evidence of moderate to severe erosive osteoarthritis of the DIP joints of the right index finger, middle finger, and ring finger. There is bony fusion of the DIP joint of the right fifth finger. Moderate degenerative change is seen at the left first CMC articulation. There is evidence of moderate to severe erosive osteoarthritis involving the DIP joints of the left second through fifth fingers. 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 Moderate degenerative change at both first CMC articulations. 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 *Reading Radiologist: Kristian Lopez on 01/31/2020 at 10:52 AM Elliot Dodge MD DIAGNOSTIC IMAGING O RDERABLES * GROSS + MICRO EXAM (STL) (08/16/2018 11:52 AM INSURANCE ADJUSTOR) Case Report Surgical Pathology Report Case: [id number] Authorizing Provider: Kumar Bruce MD Collected: 08/16/2018 11:52 AM Ordering Location: [facility] Received: 08/17/2018 11:38 AM Pathologist: Suresh Javier MD Specimens: A) - Polyp Transverse, Proximal x1 B) - Polyp Sigmoid, x1 08/20/2018 4:07 PM [facility] Final Diagnosis Colon, proximal transverse, biopsy - No pathologic diagnosis No hyperplastic or adenomatous epithelial change Colon, sigmoid, biopsy - Hyperplastic polyp, diminutive /[facility] 08/20/18 08/20/2018 4:07 PM [facility] Clinical History Preop dx - Positive Cologuard test Postop dx - Proximal transverse colon polyp, distal sigmoid colon polyp, internal hemorrhoids Clinical findings - Same 08/20/2018 4:07 PM [facility] Gross Description There are 2 formalin filled specimen containers received. Specimen 1 labeled p roximal transverse polyp x1 consists of 5 mm fonseca mucosal fragment, submitted in toto in A1. Specimen 2 labeled s igmoid polyp consists of 2 mm fonseca polypoid tissue fragment, submitted in toto in B1. 08/20/2018 4:07 PM [facility] Microscopic Description Microscopic examination corroborates the diagnosis. /[facility] 08/20/2018 4:07 PM [facility] Disclaimer All histochemical and/or immunohistochemical results are interpreted with controls that demonstrate appropriate staining reactions before reporting results. Note on use of immunocytochemistry reagents: This test was developed and its performance characteristic determined by [facility], Department of Laboratory Medicine. It has not been cleared or approved by the U.S. Food and Drug Administration (FDA). The FDA has determined that such clearance or approval is not necessary. The test is used for clinical purpose. It should not be regarded as investigational or for research. This laboratory is certified to perform high complexity testing. 08/20/2018 4:07 PM [facility] Performed By [facility], [facility] at [facility], [address] [place] [address]. [id number] 08/20/2018 4:07 PM [facility] Embedded Images 08/20/2018 4:07 PM [facility] Pathology/Cytology POLYP OF SIGMOID COLON / Unknown 08/16/2018 11:52 AM INSURANCE ADJUSTOR 08/17/2018 11:38 AM INSURANCE ADJUSTOR Miscellaneous samples (specimen) POLYP OF SIGMOID COLON / Unknown 08/16/2018 11:52 AM INSURANCE ADJUSTOR 08/17/2018 11:38 AM INSURANCE ADJUSTOR Kumar Bruce MD LAB - PATHOLOGY/CYTO LOGY ORDERABLES [facility] [address] [place] [address] * ENDOSCOPY, COLON, DIAGNOSTIC (08/16/2018) Mikala Marquez PHYSICAL THERAPY ASSISTANT INSTRUCTOR-PARTS PERSON GI PROCEDUR E ORDERABLES Performing Organization Address City/[facility]/ZIP Co de Phone Number [facility] RESULT SCAN * MAMMO LEFT DIAGNOSTIC (07/16/2018 2:08 PM INSURANCE ADJUSTOR) Anatomical Region Laterality Modality Breast Left Mammography 07/16/2018 2:14 PM INSURANCE ADJUSTOR Impressions 07/16/2018 2:17 PM INSURANCE ADJUSTOR Benign left breast mass, as above. Stable since 2013. BI-RADS Category 2: Benign finding(s). Recommendation: Resume routine yearly mammography schedule for women over age 40 or return sooner if clinically indicated. Reading Radiologist: Galo Russ MD on 07/16/2018 at 2:17 PM Narrative 07/16/2018 2:17 PM INSURANCE ADJUSTOR LEFT Diagnostic Mammography Most recent comparison: Screening exam of 2019. HISTORY: Other abnormal and inconclusive findings on diagnostic imaging of breast TECHNIQUE: Mammography views included: CC and MLO spot compression and additional diagnostic views as per protocol. Images interpreted with CAD. Following current [facility] protocol, 3D mammographic tomosynthesis images were obtained and reviewed on a dedicated viewing station. FINDINGS: Breast composition: Heterogeneously dense which may obscure small masses. Ovoid mass, partially obscured margins, 9:00 left breast, middle depth persists on spot compression views, best seen on the cc view. Although mass was absent on the 2017 examination, 2015 and 2014 examinations demonstrate an unchanged mass in this location, therefore benign. Uncertain why the mass is not visible on the 2017 examination; possibly obscured by overlapping fibroglandular tissue on both views. No suspicious masses, microcalcifications, or areas of architectural distortion are identified in the left breast. Ambrocio Nieves MD MAMMO ORDERABLES * COLOGUARD TEST (07/12/2018) Cologuard (External Result) NEGATIVE OTHER LAB Stool STOOL SPECIMEN / Unknown 07/12/2018 Jeremiah Peterson MD LAB - CHEMISTRY KARLA NUNEZ OTHER LAB * HEPATITIS C ANTIBODY (04/28/2017 7:14 AM CDT) Hepatitis C Antibody Non Reactive Non Reactive [facility] INSURANCE BILL Comment: Non Reactive - Antibodies to Hepatitis C virus (HCV) were no t detected, result does not exclude early acute HCV infection. FASTING Blood BLOOD SPECIMEN / Unknown 04/28/2017 7:14 AM CDT 04/28/2017 Narrative Resulting Agency Comment [facility] [address] [facility] [phone] Jeremiah Peterson MD LAB - CHEMISTRY KARLA NUNEZ [facility] INSURANCE BILL [address] [place] [address] * STREP A SCREEN - POINT OF CARE (AMB) (09/30/2016 11:45 AM CDT) Strep A Rapid POCT Negative Negative Comment:lot [id number] exp Strep A Internal Control Present Other ENTIRE THROAT (SURFACE REGION OF NECK) / Unknown 09/30/2016 11:45 AM CDT Domitila Espinal APRN-PARTS PERSON LAB - POINT OF CARE ORDERABLES * DEXA BONE DENSITY 2 SITES (09/03/2015 9:23 AM INSURANCE ADJUSTOR) Anatomical Region Laterality Modality Mammography 09/03/2015 11:3 7 AM INSURANCE ADJUSTOR Narrative 09/03/2015 11:44 AM INSURANCE ADJUSTOR Bone density study (DEXA): HISTORY: Postmenopausal female [...] to -2.5 Osteoporosis = -2.5 and below [facility]: [facility]: [facility]: [facility]: [facility] Zoe C Procedure Note Cleopatra Rogers MD - [...] to -2.5 Osteoporosis = -2.5 and below [facility]: [facility]: [employer] [facility] [address]: [facility]: [facility] Zoe C Jeremiah Peterson MD DEXA ORDERABLES * ECHOCARDIOGRAM STRESS (03/05/2015 9:04 AM CDT) 03/05/2015 9:04 AM CDT Narrative [facility] - 03/05/2015 10:45 AM CDT [facility] at [address] [address] Exercise Stress Echocardiography Name: RAH CALDERON MR #: [id number] Study date: 05-Mar-2015 : 1950 Age: 64 years Gender: Female Height: 65 in Weight: 148 lb BSA: 1.74 m REFERRING PHYSICIAN: Chaparro Joseph MD MACHINE PRESERVATIVE FILLER: Jayme Norton READING CREATIVE PERFUMER: Chaparro Joseph MD CLINICAL QUESTION: Detection of coronary artery disease. REST ECG: Normal sinus rhythm. PROCEDURE: Treadmill exercise testing was performed, using the Bright protocol. Stress and rest echocardiographic evaluation was performed from multiple acoustic windows for evaluation of ventricular function. CP,HTN,PAC,FX A-FIB Systolic blood pressure was 88 mmHg, at the start of the study. Diastolic blood pressure was 39 mmHg, at the start of the study. The heart rate was 65 bpm, at the start of the study. BRIGHT PROTOCOL: HR bpm SBP mmHg DBP mmHg Symptoms Rhythm/conduct Baseline 72 88 39 none occasional PVC's Stage 1 108 134 76 none occasional PVC's Stage 2 134 166 72 -- occasional PVC's Recovery 1 75 106 58 -- NSR, no ectopy Recovery 2 77 112 71 none -- Recovery 3 80 133 69 -- -- No medications or fluids given. STRESS SUMMARY: CP,HTN,PAC,FX A-FIB Duration of exercise was 6 min. The patient exercised to protocol stage 2. Maximal work rate was 7 METs. Maximal heart rate during stress was 13 bpm ( 87 % of maximal predicted heart rate). Target heart rate was achieved. The heart rate response to stress was normal. Maximal systolic blood pressure during stress was 166 mmHg. The rate-pressure product for the peak heart rate and blood pressure was 2158. There was no chest pain during stress. The stress test was terminated due to mild dyspnea. The stress ECG was normal. There were no stress arrhythmias or conduction abnormalities. IMAGE PROPERTIES: The image quality was good. STRESS 2D ECHOCARDIOGRAPHIC RESULTS: ECHO IMPRESSIONS: There was no echocardiographic evidence for stress-induced ischemia. SUMMARY: - Stress results: Duration of exercise was 6 min. Maximal work rate was 7 METs. Target heart rate was achieved. There was no chest pain during stress. - ECG conclusions: The stress ECG was normal. - Echo image interpretation: There was no echocardiographic evidence for stress-induced ischemia. IMPRESSIONS: CP,HTN,PAC,FX A-FIB Normal study. Left ventricular systolic function was normal. Prepared and signed by Chaparro Joseph MD Signed 05-Mar-2015 10:44:37 Procedure Note Chaparro Joseph MD - 03/05/2015 [facility] at [address] [address] Exercise Stress Echocardiography Name: RAH CALDERON MR #: [id number] Study date: 05-Mar-2015 : 1950 Age: 64 years Gender: Female Height: 65 in Weight: 148 lb BSA: 1.74 m REFERRING PHYSICIAN: Chaparro Joseph MD MACHINE PRESERVATIVE FILLER: Jayme Norton READING CREATIVE PERFUMER: Chaparro Joseph MD CLINICAL QUESTION: Detection of coronary artery disease. REST ECG: Normal sinus rhythm. PROCEDURE: Treadmill exercise testing was performed, using the Bright protocol. Stress and rest echocardiographic evaluation was performed from multiple acoustic windows for evaluation of ventricular function. CP,HTN,PAC,FX A-FIB Systolic blood pressure was 88 mmHg, at the start of the study. Diastolic blood pressure was 39 mmHg, at the start of the study. The heart rate was 65 bpm, at the start of the study. BRIGHT PROTOCOL: HR bpm SBP mmHg DBP mmHg Symptoms Rhythm/conduct Baseline 72 88 39 none occasional PVC's Stage 1 108 134 76 none occasional PVC's Stage 2 134 166 72 -- occasional PVC's Recovery 1 75 106 58 -- NSR, no ectopy Recovery 2 77 112 71 none -- Recovery 3 80 133 69 -- -- No medications or fluids given. STRESS SUMMARY: CP,HTN,PAC,FX A-FIB Duration of exercise was 6 min. The patient exercised to protocol stage 2. Maximal work rate was 7 METs. Maximal heart rate during stress was 13 bpm ( 87 % of maximal predicted heart rate). Target heart rate was achieved. The heart rate response to stress was normal. Maximal systolic blood pressure during stress was 166 mmHg. The rate-pressure product for the peak heart rate and blood pressure was 2158. There was no chest pain during stress. The stress test was terminated due to mild dyspnea. The stress ECG was normal. There were no stress arrhythmias or conduction abnormalities. IMAGE PROPERTIES: The image quality was good. STRESS 2D ECHOCARDIOGRAPHIC RESULTS: ECHO IMPRESSIONS: There was no echocardiographic evidence for stress-induced ischemia. SUMMARY: - Stress results: Duration of exercise was 6 min. Maximal work rate was 7 METs. Target heart rate was achieved. There was no chest pain during stress. - ECG conclusions: The stress ECG was normal. - Echo image interpretation: There was no echocardiographic evidence for stress-induced ischemia. IMPRESSIONS: CP,HTN,PAC,FX A-FIB Normal study. Left ventricular systolic function was normal. Prepared and signed by Chaparro Joseph MD Signed 05-Mar-2015 10:44:37 Chaparro Joseph MD ECHO ORDERABLES [facility] * ECHOCARDIOGRAM 2D WITH DOPPLER (02/20/2015 9:05 AM CDT) Only the most recent of2 resultswithin the time period is included. 02/20/2015 9:05 AM CDT Narrative [facility] - 02/20/2015 4:06 PM CDT [facility] [address] [place] [address] [place] [address] Transthoracic Echocardiogram 2D, M-mode, Doppler, and Color Doppler Patient: RAH CALDERON MR number: [id number] Height: 65 in Weight: 147.6 lb BSA: 1.74 m Study date: 20-Feb-2015 : 1950 Age: 64 years Gender: Female Race: REFERRING PHYSICIAN: Chaparro Joseph MD MACHINE PRESERVATIVE FILLER: Jayme Norton READING CREATIVE PERFUMER: Chaparro Joseph MD HTN,PAC Summary: - QUICK REPORTS: - HTN,PAC - History: - HTN,PAC - Left ventricle: - Systolic function was normal. Ejection fraction was estimated in the range of 55 % to 65 %. - There were no regional wall motion abnormalities. - Wall thickness was normal. - Mitral valve: - There was mild regurgitation. - Tricuspid valve: - There was mild regurgitation. History: Prior history: HTN,PAC Procedure: The study was performed in the [facility]. This was a routine study. The transthoracic approach was used. The study included complete 2D imaging, M-mode, complete spectral Doppler, and color Doppler. The heart rate was 83 bpm. Systolic blood pressure was 113 mmHg. Diastolic blood pressure was 58 mmHg. Images were obtained from the parasternal, apical, subcostal, and suprasternal notch acoustic windows. Image quality was adequate. Left ventricle: Size was normal. Systolic function was normal. Ejection fraction was estimated in the range of 55 % to 65 %. There were no regional wall motion abnormalities. Wall thickness was normal. Aortic valve: The valve was trileaflet. Leaflets exhibited normal thickness and normal cuspal separation. Doppler: Transaortic velocity was within the normal range. There was no stenosis. There was no regurgitation. Aorta: The root exhibited normal size. Mitral valve: Doppler: There was mild regurgitation. Left atrium: Size was at the upper limits of normal. Right ventricle: The size was normal. Systolic function was normal. Wall thickness was normal. Pulmonic valve: Doppler: There was no significant regurgitation. Tricuspid valve: Doppler: There was mild regurgitation. Right atrium: Size was at the upper limits of normal. Pericardium: There was no pericardial effusion. The pericardium was normal in appearance. System measurement tables 2D Ao Diam: 2.8 cm LA Diam: 3.2 cm %FS: 33 % EF Biplane: 65.5 % EF(Teich): 62.2 % IVSd: 1 cm LVEF MOD A2C: 59.7 % LVEF MOD A4C: 71.7 % LVIDd: 3.9 cm LVIDs: 2.6 cm LVOT Diam: 2.2 cm LVPWd: 1 cm RVIDd: 3.2 cm Ao Arch Diam: 3.3 cm Ao abd AP: 2.1 cm Ao asc: 2.8 cm G peak SL(A2C): -23 % G peak SL(A4C): -17.5 % G peak SL(APLAX): -18.4 % G peak SL(Avg): -19.7 % IVC: 1.6 cm LAESV Index (A-L): 28 ml/m2 LV Major: 5.7 cm LV Minor: 3.3 cm RVAWd: 0.2 cm CF MR Als.Yang: 0.3 m/s MR Flow: 14.9 ml/s MR Rad: 0.3 cm CW AV VTI: 30.9 cm AV Vmax: 1.5 m/s AV Vmean: 0.9 m/s AV maxP.6 mmHg AV meanP.1 mmHg MR Vmax: 5.2 m/s TR Vmax: 2.8 m/s TR maxP.2 mmHg MM Ao Diam: 2.9 cm AV Cusp: 1.7 cm LA Diam: 3 cm %FS: 34.8 % EF(Teich): 64.1 % IVSd: 0.8 cm IVSs: 0.8 cm LVIDd: 4.5 cm LVIDs: 2.9 cm LVPWd: 0.9 cm LVPWs: 1 cm TAPSE: 2.1 cm PW GIFTY (VTI): 3.4 cm2 GIFTY Vmax: 3.3 cm2 LVOT Vmax: 1.2 m/s LVOT maxP.9 mmHg MV A Yang: 0.8 m/s MV E Yang: 0.7 m/s MV E/A Ratio: 0.8 MV PHT: 52.7 ms MV VTI: 18.1 cm MV Vmax: 0.8 m/s MV Vmean: 0.4 m/s MV maxP.7 mmHg MV meanP.9 mmHg MVA (VTI): 5.7 cm2 MVA By PHT: 4.2 cm2 PV VTI: 19.6 cm PV Vmax: 0.9 m/s PV maxP.4 mmHg RVSP: 36.2 mmHg LATERAL E/E: 7 LVOT VTI: 26.1 cm LVOT Vmean: 0.8 m/s LVOT meanP.1 mmHg Lateral E': 0.1 m/s P Vein A: 0.4 m/s P Vein A Dur: 69.2 ms P Vein D: 0.4 m/s P Vein S: 0.6 m/s P Vein S/D Ratio: 1.6 RV S: 0.1 m/s SEPATLE/E: 8.6 SEPTALE': 0.1 m/s Prepared and signed by Chaparro Joseph MD Signed 20-Feb-2015 16:05:57 Procedure Note Chaparro Joseph MD - 02/20/2015 [facility] [address] [place] [address] Transthoracic Echocardiogram 2D, M-mode, Doppler, and Color Doppler Patient: RAH CALDERON MR number: [id number] Height: 65 in Weight: 147.6 lb BSA: 1.74 m Study date: 20-Feb-2015 : 1950 Age: 64 years Gender: Female Race: REFERRING PHYSICIAN: Chaparro Joseph MD MACHINE PRESERVATIVE FILLER: Jayme Norton READING CREATIVE PERFUMER: Chaparro Joseph MD HTN,PAC Summary: - QUICK REPORTS: - HTN,PAC - History: - HTN,PAC - Left ventricle: - Systolic function was normal. Ejection fraction was estimated in the range of 55 % to 65 %. - There were no regional wall motion abnormalities. - Wall thickness was normal. - Mitral valve: - There was mild regurgitation. - Tricuspid valve: - There was mild regurgitation. History: Prior history: HTN,PAC Procedure: The study was performed in the [facility]. This was a routine study. The transthoracic approach was used. The study included complete 2D imaging, M-mode, complete spectral Doppler, and color Doppler. The heart rate was 83 bpm. Systolic blood pressure was 113 mmHg. Diastolic blood pressure was 58 mmHg. Images were obtained from the parasternal, apical, subcostal, and suprasternal notch acoustic windows. Image quality was adequate. Left ventricle: Size was normal. Systolic function was normal. Ejection fraction was estimated in the range of 55 % to 65 %. There were no regional wall motion abnormalities. Wall thickness was normal. Aortic valve: The valve was trileaflet. Leaflets exhibited normal thickness and normal cuspal separation. Doppler: Transaortic velocity was within the normal range. There was no stenosis. There was no regurgitation. Aorta: The root exhibited normal size. Mitral valve: Doppler: There was mild regurgitation. Left atrium: Size was at the upper limits of normal. Right ventricle: The size was normal. Systolic function was normal. Wall thickness was normal. Pulmonic valve: Doppler: There was no significant regurgitation. Tricuspid valve: Doppler: There was mild regurgitation. Right atrium: Size was at the upper limits of normal. Pericardium: There was no pericardial effusion. The pericardium was normal in appearance. System measurement tables 2D Ao Diam: 2.8 cm LA Diam: 3.2 cm %FS: 33 % EF Biplane: 65.5 % EF(Teich): 62.2 % IVSd: 1 cm LVEF MOD A2C: 59.7 % LVEF MOD A4C: 71.7 % LVIDd: 3.9 cm LVIDs: 2.6 cm LVOT Diam: 2.2 cm LVPWd: 1 cm RVIDd: 3.2 cm Ao Arch Diam: 3.3 cm Ao abd AP: 2.1 cm Ao asc: 2.8 cm G peak SL(A2C): -23 % G peak SL(A4C): -17.5 % G peak SL(APLAX): -18.4 % G peak SL(Avg): -19.7 % IVC: 1.6 cm LAESV Index (A-L): 28 ml/m2 LV Major: 5.7 cm LV Minor: 3.3 cm RVAWd: 0.2 cm CF MR Als.Yang: 0.3 m/s MR Flow: 14.9 ml/s MR Rad: 0.3 cm CW AV VTI: 30.9 cm AV Vmax: 1.5 m/s AV Vmean: 0.9 m/s AV maxP.6 mmHg AV meanP.1 mmHg MR Vmax: 5.2 m/s TR Vmax: 2.8 m/s TR maxP.2 mmHg MM Ao Diam: 2.9 cm AV Cusp: 1.7 cm LA Diam: 3 cm %FS: 34.8 % EF(Teich): 64.1 % IVSd: 0.8 cm IVSs: 0.8 cm LVIDd: 4.5 cm LVIDs: 2.9 cm LVPWd: 0.9 cm LVPWs: 1 cm TAPSE: 2.1 cm PW GIFTY (VTI): 3.4 cm2 GIFTY Vmax: 3.3 cm2 LVOT Vmax: 1.2 m/s LVOT maxP.9 mmHg MV A Yang: 0.8 m/s MV E Yang: 0.7 m/s MV E/A Ratio: 0.8 MV PHT: 52.7 ms MV VTI: 18.1 cm MV Vmax: 0.8 m/s MV Vmean: 0.4 m/s MV maxP.7 mmHg MV meanP.9 mmHg MVA (VTI): 5.7 cm2 MVA By PHT: 4.2 cm2 PV VTI: 19.6 cm PV Vmax: 0.9 m/s PV maxP.4 mmHg RVSP: 36.2 mmHg LATERAL E/E: 7 LVOT VTI: 26.1 cm LVOT Vmean: 0.8 m/s LVOT meanP.1 mmHg Lateral E': 0.1 m/s P Vein A: 0.4 m/s P Vein A Dur: 69.2 ms P Vein D: 0.4 m/s P Vein S: 0.6 m/s P Vein S/D Ratio: 1.6 RV S: 0.1 m/s SEPATLE/E: 8.6 SEPTALE': 0.1 m/s Prepared and signed by Chaparro Joseph MD Signed 20-Feb-2015 16:05:57 Chaparro Joseph MD ECHO ORDERABLES [facility] * HEMOGLOBIN A1C (01/12/2015 10:11 AM CDT) Only the most recent of3 resultswithin the time period is included. Hemoglobin A1c 5.6 4.8 - 5.6 % [facility] ACCOUNT BILL Comment: . Increased risk for diabetes: 5.7 - 6.4 Diabetes: >6.4 Glycemic control for adults with diabetes: <7.0 Whole blood specimen (specimen) BLOOD SPECIMEN WITH EDTA / Unknown 01/12/2015 10:11 AM CDT 01/12/2015 1:31 PM CDT Narrative Resulting Agency Comment [facility] [address] [facility] [id number] Suresh Salgado MD LAB - CHEMISTRY KARLA NUNEZ [facility] ACCOUNT BILL * PAP SMEAR IG RFLX HPV ASCU (PO REF LAB) (07/21/2014 12:58 PM INSURANCE ADJUSTOR) Only the most recent of9 resultswithin the time period is included. Diagnosis [facility] INSURANCE BILL Comment: NEGATIVE FOR INTRAEPITHELIAL LESION AND MALIGNANCY. CELLULAR CHANGES ASSOCIATED WITH ATROPHY ARE PRESENT. Specimen Adequacy [facility] INSURANCE BILL Comment: Satisfactory for evaluation. Endocervical component may not be distinguished in cases of atrophy. Clinician Provided ICD9 [facility] INSURANCE BILL Comment:795.08 ; Unsatisfact ory cervical cytology smear Performed by [email or web address] INSURANCE BILL Comment:Patricia Abrams, [employer] hnologist (ASCP) Comment . [facility] INSURANCE BILL Note [facility] INSURANCE BILL Comment: The Pap smear is a screening test designed to aid in the detection of premalignant and malignant conditions of the uterine cervix. It is not a diagnostic procedure and should not be used as the sole means of detecting cervical cancer. Both false-positive and false-negative reports do occur. . IGLBP CPT Code Automation [facility] INSURANCE BILL Comment: This liquid based ThinPrep(R) pap test was screened with the use of an image guided system. Note [email or web address] INSURANCE BILL Comment: The HPV DNA reflex criteria were not met with this specimen result therefore, no HPV testing was performed. . Miscellaneous samples (specimen) MICROSCOPIC CYTOLOGIC EXAMINATION OF SMEAR OF SPECIMEN FROM FEMALE GENITAL TRACT PREPARED USING PAPANICOLAOU TECHNIQUE / Unknown 07/21/2014 12:58 PM INSURANCE ADJUSTOR 07/22/2014 1:34 AM INSURANCE ADJUSTOR Narrative [facility] INSURANCE BILL - 07/24/2014 10:24 AM INSURANCE ADJUSTOR No. of containers..01 CYTYC Thin Prep Vial Resulting Agency Comment [facility] [place] [address] [place] [phone] Ambrocio Nieves MD LAB - PATHOLOGY/CYTO LOGY ORDERABLES [facility] INSURANCE BILL * CBC W/O DIFFERENTIAL (01/09/2013 4:40 PM CDT) Only the most recent of2 resultswithin the time period is included. WBC 6.9 4.4 - 10.7 x10^9/L 01/09/2013 5:05 PM CDT [facility] RBC 4.46 3.80 - 5.20 x10^12/L 01/09/2013 5:05 PM CDT [facility] Hemoglobin 14.8 12.0 - 15.6 g/dL 01/09/2013 5:05 PM CDT [facility] Hematocrit 41.8 35.9 - 45.5 % 01/09/2013 5:05 PM CDT [facility] MCV 93.7 80.7 - 98.3 fl 01/09/2013 5:05 PM CDT [facility] MCH 33.2 26.7 - 34.0 pg 01/09/2013 5:05 PM CDT [facility] MCHC 35.4 30.8 - 35.9 gm/dL 01/09/2013 5:05 PM CDT [facility] Platelet Count 273 153 - 416 x10^9/L 01/09/2013 5:05 PM CDT [facility] RDW-CV 12.3 12.1 - 14.9 % 01/09/2013 5:05 PM CDT [facility] MPV 10.3 9.4 - 12.9 fl 01/09/2013 5:05 PM CDT [facility] Blood specimen (specimen) BLOOD SPECIMEN / Unknown Lab Venipuncture / Unknown 01/09/2013 4:40 PM CDT 01/09/2013 4:56 PM CDT Suresh Salgado MD LAB - HEMATOLOGY ORD ERABLES [facility] [address] [place] [address] * HOLTER MONITOR (05/10/2012 12:14 PM INSURANCE ADJUSTOR) Narrative [facility] RESULT SCAN - 05/10/2012 12:14 PM INSURANCE ADJUSTOR Chaparro Joseph MD 05/10/2012 12:14 PM Patient Information Patient Name: Rah Calderon Gender: female Height/Weight: Duration: 48:00 Artifact: Hookup Date: 04/30/12 Indications: palpitations Holter Report Summary Total QRS Complexes: [id number] Heart Rate: Ventricular Ectopics: 24 min: 51 bpm (4:25 pm Mon) Supraventricular Ectopics: 173 max: 129 bpm (3:39 am Wed) av bpm Paced Beats: Pause(s): 0 Longest: Ventricular Events Isolateds: 24 In Bigeminal Cycles: 0 Couplets: 0 Runs: 0 Supraventricular Events Isolateds: 122 Couplets: 22 Runs: 2 Longest: 4 beats, 143 bpm (9:49 am Wed) Slowest: 3 beats, 117 bpm (4:27 am Tue) Fastest: 4 beats, 143 bpm (9:49 am Wed) Interpretation 1. fair quality holter, with mild background artifact, sinus rhythm 2. Average HR-63BPM, minimum-51BPM, maximum-129BPM 3. Occasional PAC's/couplets and rare PVC's 4. No sinus pause 5. No sustained arrhythmias Interpreting Physician: Chaparro Joseph MD, [facility] 05/10/2012 12:12 PM Chaparro Joseph MD, [facility] Procedure Note Jany Samuel - 05/10/2012 10:15 AM CST Patient Information Patient Name: Rah Calderon Gender: female Height/Weight: Duration: 48:00 Artifact: Hookup Date: 04/30/12 Indications: palpitations Holter Report Summary Total QRS Complexes: [id number] HeartRate: Ventricular Ectopics: 24min: 51 bpm (4:25 pm Mon) Supraventricular Ectopics: 173 max:129 bpm (3:39 am Wed) av bpm Paced Beats: Pause(s): 0 Longest: Ventricular Events Isolateds: 24 In Bigeminal Cycles: 0 Couplets: 0 Runs: 0 Supraventricular Events Isolateds: 122 Couplets: 22 Runs: 2 Longest: 4 beats, 143 bpm (9:49 am Wed) Slowest: 3 beats, 117 bpm (4:27 am Tue) Fastest: 4 beats, 143 bpm (9:49 am Wed) Interpretation 1. fair quality holter, with mild background artifact, sinus rhythm 2. Average HR-63BPM, minimum-51BPM, maximum-129BPM 3. Occasional PAC's/couplets and rare PVC's 4. No sinus pause 5. No sustained arrhythmias Interpreting Physician: Chaparro Joseph MD, FACC 05/10/2012 12:12 PM Chaparro Joseph MD, FACC Chaparro Joseph MD CARDIAC SERVICES ORD ERABLES Performing Organization Address City/[facility] Co de Phone Number [facility] RESULT SCAN * TSH (04/19/2012 3:17 PM CDT) Only the most recent of2 resultswithin the time period is included. TSH 2.820 0.450 - 4.500 uIU/mL [facility] ACCOUNT BILL Blood specimen (specimen) BLOOD SPECIMEN / Unknown 04/19/2012 3:17 PM CDT 04/19/2012 6:17 PM CDT Narrative Resulting Agency Comment [facility] [address] [facility] [phone] Chaparro Joseph MD LAB - CHEMISTRY KARLA NUNEZ Performing Organization Address [facility] de Phone Number [facility] ACCOUNT BILL * T4 FREE (04/19/2012 3:17 PM CDT) Only the most recent of2 resultswithin the time period is included. T4 Free 1.32 0.82 - 1.77 ng/dL [facility] ACCOUNT BILL Blood specimen (specimen) BLOOD SPECIMEN / Unknown 04/19/2012 3:17 PM CDT 04/19/2012 6:17 PM CDT Narrative Resulting Agency Comment [facility] [address] [facility] [phone] Chaparro Joseph MD LAB - CHEMISTRY KARLA NUNEZ [facility] ACCOUNT BILL * EKG 12-LEAD (04/19/2012) Peyton Sepulveda PHYSICAL THERAPY ASSISTANT INSTRUCTOR-PARTS PERSON ECG ORDERABLES Performing Organization Address City/State/[facility] Co de Phone Number [facility] RESULT SCAN * DEXA BONE DENSITY AXIAL SKELETON (04/06/2011 11:05 AM CDT) Only the most recent of3 resultswithin the time period is included. Anatomical Region Laterality Modality Mammography 04/06/2011 12:1 1 PM CDT Narrative 04/06/2011 12:16 PM CDT BONE MINERAL DENSITY STUDY: INDICATION: Postmenopausal osteoporosis screening FINDINGS: The bone mineral content of the lumbar spine is 0.862 g/cm2. The T-score is -2.7 standard deviations [below] the mean for the adult T-score. The Z-score is -1.4 standard deviations [below] the mean for age-matched control (Z-score). This is in the range of osteoporosis. Compared to 04/01/2009 bone mineral density has decreased by 1.6%. The bone mineral content of the femoral neck is 0.694 g/cm2. The T-score is -2.5 standard deviations [below] the mean. The Z-score is -1.2 standard deviations [below] the mean for age-matched control (z-score). This is in the range of osteoporosis. Compared to 04/01/2009 bone mineral density has improved by 2.3%. WORLD HEALTH ORGANIZATION DEFINITIONS OSTEOPENIA = 1-2.5 SD BELOW T SCORE. OSTEOPOROSIS = >2.5 SD BELOW T SCORE Procedure Note Jaime Winters MD - 04/06/2011 BONE MINERAL DENSITY STUDY: INDICATION: Postmenopausal osteoporosis screening FINDINGS: The bone mineral content of the lumbar spine is 0.862 g/cm2. The T-score is -2.7 standard deviations [below] the mean for the adult T-score. The Z-score is -1.4 standard deviations [below] the mean for age-matched control (Z-score). This is in the range of osteoporosis. Compared to 04/01/2009 bone mineral density has decreased by 1.6%. The bone mineral content of the femoral neck is 0.694 g/cm2. The T-score is -2.5 standard deviations [below] the mean. The Z-score is -1.2 standard deviations [below] the mean for age-matched control (z-score). This is in the range of osteoporosis. Compared to 04/01/2009 bone mineral density has improved by 2.3%. WORLD HEALTH ORGANIZATION DEFINITIONS OSTEOPENIA = 1-2.5 SD BELOW T SCORE. OSTEOPOROSIS = >2.5 SD BELOW T SCORE Ambrocio Nieves MD DEXA ORDERABLES * MAMMO SCREENING BILATERAL (07/01/2010 9:44 AM INSURANCE ADJUSTOR) Only the most recent of3 resultswithin the time period is included. Anatomical Region Laterality Modality Breast Mammography 07/05/2010 9:08 AM INSURANCE ADJUSTOR Impressions 07/05/2010 9:08 AM INSURANCE ADJUSTOR No Mammographic Evidence of Malignancy. BIRADS: 2 benign. RECOMMENDATION: Annual Screening Mammograms. Narrative 07/05/2010 9:08 AM INSURANCE ADJUSTOR EXAM: BILATERAL SCREENING MAMMOGRAM COMPARISON: 06/29/2009 FINDINGS: Bilateral screening mammograms were obtained. The breast composition is dense which may decrease sensitivity of mammography. There is no evidence of a dominant mass, spiculation, grouped microcalcifications, or architectural distortion to suggest malignancy. The fibroglandular pattern has remained stable. Procedure Note Ace Gonsalves MD - 07/05/2010 EXAM: BILATERAL SCREENING MAMMOGRAM COMPARISON: 06/29/2009 FINDINGS: Bilateral screening mammograms were obtained. The breast composition is dense which may decrease sensitivity of mammography. There is no evidence of a dominant mass, spiculation, grouped microcalcifications, or architectural distortion to suggest malignancy. The fibroglandular pattern has remained stable. IMPRESSION No Mammographic Evidence of Malignancy. BIRADS: 2 benign. RECOMMENDATION: Annual Screening Mammograms. Ambrocio Nieves MD MAMMO ORDERABLES * IMAGING/RADIOLOGY/XRAY RESULTS ORDER (04/26/2010 11:22 AM CDT) Anatomical Region Laterality Modality Other Narrative Procedure Note Document, Scanned - 04/25/2010 5:06 PM CDT Scanned Document IMAGING * URINALYSIS ROUTINE AUTO (04/24/2010 7:50 PM CDT) Source clean catch [facility] Color UA Yellow [facility] Character UA Clear [facility] Specific [place] UA 1.020 1.002 - 1.030 [facility] pH UA 6.5 5.0 - 8.0 [facility] Protein UA Negative NEG [facility] Blood UA Negative NEG [facility] Leukocyte UA Negative NEG [facility] Nitrite UA Negative NEG [facility] Glucose UA Negative NEG [facility] Ketone UA 1+ NEG [facility] Bilirubin UA Negative NEG [facility] Urobilinogen UA 0.2 0.1 - 1.0 E.U./dl [facility] URINE SPECIMEN OBTAINED BY CLEAN CATCH PROCEDURE / Unknown 04/24/2010 7:50 PM CDT 04/24/2010 7:53 PM CDT Melly Linares MD LAB - URINALYSIS OR DERABLES [facility] [address] [place] [address] * CT HEAD - NON CONTRAST (04/24/2010 6:01 PM CDT) Anatomical Region Laterality Modality Head Computed Tomogra phy 04/25/2010 7:32 AM CDT Impressions 04/25/2010 8:53 AM CDT No acute parenchymal process. Narrative 04/25/2010 8:[address] BRAIN INDICATION: Frontal headache. TECHNIQUE: Noncontrast head CT protocol. FINDINGS: Ventricles and sulci are appropriate for patient's age. Cerebral and cerebellar parenchyma demonstrates normal attenuation. No evidence for hemorrhage. No midline shift. No abnormal extra-axial fluid collections. Partial visualization of the paranasal sinuses, mastoid air cells, orbits, skull and scalp appears to be within normal limits. Procedure Note Valentin Robertson MD - 04/25/2010 CT BRAIN INDICATION: Frontal headache. TECHNIQUE: Noncontrast head CT protocol. FINDINGS: Ventricles and sulci are appropriate for patient's age. Cerebral and cerebellar parenchyma demonstrates normal attenuation. No evidence for hemorrhage. No midline shift. No abnormal extra-axial fluid collections. Partial visualization of the paranasal sinuses, mastoid air cells, orbits, skull and scalp appears to be within normal limits. IMPRESSION No acute parenchymal process. Melly Linares MD CT ORDERABLES * (ABNORMAL) VITAMIN D 25-HYDROXY (05/22/2008 1:22 PM INSURANCE ADJUSTOR) Vitamin D, 25 Hydroxy 27.9(L) 32.0 - 100.0 ng/mL [facility] INSURANCE BILL Comment: Recent studies consider the lower limit of 32.0 ng/mL to be a threshold for optimal health. Marcello NAZARIO. J Nutr. 2004;135(2):317-22. BLOOD SPECIMEN / Unknown 05/22/2008 1:22 PM INSURANCE ADJUSTOR 05/22/2008 8:33 PM INSURANCE ADJUSTOR Narrative Resulting Agency Comment [facility] [address] [phone] Ambrocio Nieves MD LAB - CHEMISTRY KARLA NUNEZ Performing Organization Address City/[facility]/ZIP Co de Phone Number [facility] INSURANCE BILL * VITAMIN D 1,25 DIHYDROXY (05/22/2008 12:00 AM INSURANCE ADJUSTOR) Vitamin D, 1,25 Dihydroxy 32.5 15.9 - 55.6 pg/mL [facility] INSURANCE BILL 05/22/2008 05/22/2008 8: 54 PM INSURANCE ADJUSTOR Narrative Resulting Agency Comment [facility] [address] [phone] Ambrocio Nieves MD LAB - CHEMISTRY KARLA NUNEZ [facility] INSURANCE BILL * PAP SMEAR LB HPV HR (PO REF LAB) (03/20/2008 11:09 AM CDT) [facility] ACCOUNT BILL Diagnosis [facility] ACCOUNT BILL Comment:NEGATIVE FOR INTRAEP ITHELIAL LESION AND MALIGNANCY. Specimen Adequacy [facility] ACCOUNT BILL Comment: Satisfactory for evaluation. Endocervical and/or squamous metaplastic cells (endocervical component) are present. [facility] ACCOUNT BILL Performed by [facility] ACCOUNT BILL Comment:Toya De Souza Cytot echnologist (ASCP) Comment . [facility] ACCOUNT BILL Note [facility] ACCOUNT BILL Comment: The Pap smear is a screening test designed to aid in the detection of premalignant and malignant conditions of the uterine cervix. It is not a diagnostic procedure and should not be used as the sole means of detecting cervical cancer. Both false-positive and false-negative reports do occur. . Human papillomavirus High Risk Negative Negative [facility] ACCOUNT BILL Comment: This high-risk HPV test detects thirteen high-risk types (16/18/31/33/35/39/45/51/52/56/58/59/68) without differentiation. . 03/20/2008 11:0 9 AM CDT 03/25/2008 10:42 AM CDT Narrative [facility] ACCOUNT BILL - 03/27/2008 8:11 PM CDT Dates / Results....LPS 03/15/07 No. of containers..01 CYTYC Thin Prep Vial Resulting Agency Comment [facility] [address] [phone] Noemi Oliva MD LAB - PATHOLOGY/CYTO LOGY ORDERABLES [facility] ACCOUNT BILL * XR FOREARM 2 VW RIGHT (06/04/2007 1:35 PM INSURANCE ADJUSTOR) Anatomical Region Laterality Modality Upper Extremity Other 06/04/2007 1:35 PM INSURANCE ADJUSTOR Narrative 06/04/2007 3:41 PM INSURANCE ADJUSTOR Right forearm 2 views HISTORY- right forearm pain FINDINGS- No fracture-dislocation is seen in the right forearm. IMPRESSION- No fracture. Reading Radiologist- GERALDINE BRAVO MD Releasing Radiologist- GERALDINE BRAVO MD Released Date Time- 06/04/07 1542 Regional Transfer Liaison- PTM - SURESH SALGADO- CHARLY SOLIS REF- CON- PCP- SURESH SALGADO SCP- DIAGNOSTIC IM[facility] Care Teams Medical Biller Relationship Specialty Start Date End Date Jeremiah Peterson MD [address] [facility] [address] [place] [address] PCP - General Internal Medicine 08/31/15 Earnest Najera MD [address] [facility] [address] [place], [place] [id number] PCP - Attributed-MSSP 04/02/24 Chaparro Joseph MD [address] [facility] [address] [place] [address] Treating Engineer Cardiovascular Disease 04/18/17 [place] [address] [place] [address] [address] Dermatology 04/18/17
== END 2024-08-13 13:03 | disposition home or self-care (01) ==
LOC: ANHIMG 13:03
PROVIDERS: PCP Emergency Medicine; Visit Provider Emergency Medicine
DX: Z78.0 Asymptomatic menopausal state (principal); E55.9 Vitamin D deficiency, unspecified; M81.0 Age-related osteoporosis without current pathological fracture
CPT/HCPCS: 77080

== ENCOUNTER 2024-10-31 11:12 | Outpatient (CLI) | payer MEDICARE, BC, SELFPAY ==
--- NOTE | ~2024-10-31 | MM_ITS ---
EXAMINATION: MM screening juan BI w claire HISTORY: Screening TECHNIQUE: Craniocaudal and mediolateral oblique 3-D tomosynthesis images were obtained and synthetic 2-D images were generated. CAD analysis was submitted and interpreted. COMPARISON: No prior mammogram is available for comparison at this institution. BREAST PARENCHYMAL COMPOSITION: Dense: The breasts are heterogeneously dense, which may obscure small masses FINDINGS: There is no evidence of suspicious mass, calcification, or architectural distortion to sugg est malignancy in either breast. There has been no suspicious interval change. IMPRESSION: 1. No mammographic evidence of malignancy. 2. Recommend routine screening mammography in one year. BI-RADS Category 1: Negative Reviewed, dictated and finalized at location A.
== END 2024-10-31 11:13 | disposition home or self-care (01) ==
LOC: MICIMG 11:14
PROVIDERS: PCP Emergency Medicine; Visit Provider Emergency Medicine
DX: Z12.31 Encounter for screening mammogram for malignant neoplasm of breast (principal)
CPT/HCPCS: 77063; 77067

== ENCOUNTER 2025-02-21 10:26 | Outpatient (CLI) | payer MEDICARE, BC, SELFPAY ==
--- OUTSIDE RECORDS SUMMARY | 2025-02-21 10:30 | XMS_ITS | Patient Health Record ---
Author Organization Inc. Oral Address [address] [place], [place] [id number] Care Team Providers Care Rfp Writer Name Role Phone TIFFANI ALEXANDER Primary Care Provider Paulette Guerrero Unavailable [phone] Allergies Allergen (clinical drug ingredient) Drug/Non Drug Allergy documented on EMR Reaction Allergy Type Onset Date Status base metal (uncoded) Unknown Allergy Active Reason For Referral No Information Medications Medication SIG (Take, Route, Frequency, Duration) Notes Start Date End Date Status Losartan Potassium A ctive Propranolol HCl Acti ve Meloxicam 15 MG TAKE 1 TABLET BY BORIS TH EVERY DAY Oral for 90 Active Mometasone Furoate 0.1 % APPLY A THIN LA KARON TOPICALLY TO ARMS AND LEGS TWICE DAILY for 20 Active Immunizations Vaccine Route Administration Date Status Comme nts Influenza, unspecified formu lation (CPT 87740 Inactive) Unknown 03/07/2017 Administered Influenza, unspecified formu lation (CPT 57217 Inactive) Unknown 04/11/2018 Administered Influenza, unspecified formu lation (CPT 23173 Inactive) Unknown 04/04/2019 Administered Influenza, unspecified formu lation (CPT 07301 Inactive) Unknown 03/17/2020 Administered Influenza, unspecified formu lation (CPT 83346 Inactive) Unknown 04/20/2021 Administered Influenza, unspecified formu lation (CPT 08146 Inactive) Unknown 03/18/2022 Administered Influenza, unspecified formu lation (CPT 54628 Inactive) Unknown 03/08/2023 Administered Pneumococcal polysaccharide PPV23 Unknown 11/30/2017 Re fused Pneumococcal polysaccharide PPV23 Unknown 11/10/2021 Re fused Pneumococcal polysaccharide PPV23 Unknown 11/14/2023 Re fused Influenza, unspecified formu lation (CPT 54587 Inactive) Unknown 11/12/2024 Refused Pneumococcal polysaccharide PPV23 Unknown 11/12/2024 Re fused Social History Tobacco Use: Social History Observation Description Date Details (start date - stop date) Never Smoker NA - NA Tobacco Use/Smoking Question Answer Notes Are you a nonsmoker Problems Problem Type SNOMED Code ICD Code Onset Dates Problem Status W/U Status Risk Notes Problem Neoplasm of uncertain behavior of skin (07628346) Neoplasm of uncertain behavior of skin (D48.5) Active confirmed Problem Psoriasis vulgaris (435549670) Psoriasis vulgaris (L40.0) Active confirmed Patient ashley gusman use mometasone cream as needed, she is not interested in systemic medication. Problem Actinic keratosis (746472236) Actinic keratosis (L57.0) Active confirmed Lesions were treated with cryotherapy for 15 seconds a piece today in my office as per procedure note.. Patient was warned of the side effects including large blisters, pain, scarring, secondary infection and recurrence. Patient was instructed to bathe normally and treat with topical antibiotics and a bandage once the blisters unroof and the sites are healed. Written instructions were given. Problem History of malignant basal cell tumor of skin (971112624) History of basal cell carcinoma (Z85.828) Active confirmed No evidence of recurrence or new lesions indicative of this malignancy on full skin exam. Patient instructed on skin cancer monitoring and sun protection. Problem Psoriasis (4943336) Psoriasis (L40.9) Active confirmed approximately 4% by surface area coverage Thinly scattered over her elbows legs and abdomen which patient is happy with and will continue topical mometasone cream as needed. 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 Patient instructed on skin care monitoring and sun protection. Problem Multiple benign melanocytic nevi (291973461) Multiple nevi (D22.9) Active confirmed Benign appearing nevi were noted on head, neck, trunk or extremities. Patient education was provided including the ABCDs of melanoma and identification of nonmelanoma skin cancers as well as the importance of sun protection. Vital Signs Weight 145 lbs 11/12/2024 Encounters Encounter Location Date Provider [facility] [address] [place], [place] [id number] 11/12/2024 Paulette Bulmaro Psoriasis vulgaris L 40.0 ; Multiple nevi D22.9 ; Actinic keratosis L57.0 ; Keratoacanthoma L85.8 and History of basal cell carcinoma Z85.828 Assessments Encounter Date Diagnosis (ICD Code) Assessment Notes Treatment Notes Treatment Clinical Notes Section Notes 11/12/2024 Psoriasis vulgaris (ICD-10 - L40.0) Patient will use mometasone cream as needed, she is not interested in systemic medication. 11/12/2024 Multiple nevi (ICD-10 - D22.9) Benign appearing nevi were noted on head, neck, trunk or extremities. Patient education was provided including the ABCDs of melanoma and identification of nonmelanoma skin cancers as well as the importance of sun protection. 11/12/2024 Actinic keratosis (ICD-10 - L57.0) Lesions were [...] sites are healed. Written instructions were given. 11/12/2024 Keratoacanthoma (ICD-10 - L85.8) No evidence of recurrence or new lesions indicative of this malignancy on full skin exam. Patient instructed on skin care monitoring and sun protection. 11/12/2024 History of basal cell carcinoma (ICD-10 - Z85.828) No evidence of recurrence or new lesions indicative of this malignancy on full skin exam. Patient instructed on skin cancer monitoring and sun protection. Plan Of Treatment Pending Test Test Name Order Date Dermatopathology 11/30/2017 Skin, Shave Biopsy 11/10/2021 Next Appt Details Provider Name:Paulette Chamberlain , 11/11/2025 10:30:00 AM, [address], [place], [place], [id number], Insurance Providers Payer Name Payer Address Payer Phone Subscriber Number Group Number Insured Name Patient Relationship to Insured Coverage Start Date Coverage End Date [place] [address] [address] [place] [address] [id number] RAH AVILA Self - patient is the insured [facility] [address] [place] [address] [id number] SHAKA AVILA Spouse - patient is the spouse of the insured Medical (General) History Medical History History ICD Code Actinic Keratosis (pre-cancers) Arthritis Basal Cell Carcinoma Hypertension Migraines Surgical History Surgery Date(Month/Year) tubal ligation skin cancer surgery
--- OUTSIDE RECORDS SUMMARY | 2025-02-21 10:30 | XMS_ITS ---
Author Organization [facility] Address [address] [place] [address] Care Team Providers Care Animal Humane Agent Supervisor Name Role Phone Jeremiah Peterson MD Primary Care Provider [phone] Chaparro Joseph MD Unavailable Paulette Chamberlain MD Unavailable [phone] Krysten Stern MA Unavailable [phone] QMM & AWV - [employer] Status:Identified (Enrolling) Start date:02/18/2025 Enrollment reason:Identified using claims or encounter data Case Team Name Relationship Phone Krysten Stern MA(Responsible Staff) Care [facility] [phone] Continued Care and Services Coordination
--- OUTSIDE RECORDS SUMMARY | 2025-02-21 10:30 | XMS_ITS | Clinical Summary ---
Author Organization [facility] Address [address] [place] [address] Care Team Providers Care Oil And Gas Principal Name Role Phone Jeremiah Peterson MD Primary Care Provider Chaparro Joseph MD Unavailable Paulette Chamberlain MD Unavailable [phone] Krysten Stern MA Unavailable [phone] Source Comments [facility],non-owned Affiliates and Associated Physician Practices is amultiple site organization consisting of ambulatory clinics and hospital sitesin [place], [place], [place] and [place]. This disclosure is being madepursuant to the Care Everywhere program and may not contain all information available regarding this patient. Last updated 18.[facility] Allergies Active Allergy Reactions Criticality Noted Date Comments Trace Metals Rash Medium 06/14/2023 Medications * Be aware that medications may not be up to date on this document. Alwaysverify current medications with the patient. mometasone (ELOCON) 0.1 % cream Apply 1 Drop to affected area once daily Active SUMAtriptan (IMITREX) 50 MG tablet TAKE 1 TABLET BY MOUTH ONCE NEEDED FOR MIGRAINE, NO MORE THAN 2 TABLETS PER 24 HOURS. 30 Tab 3 7 Active Additional Information Patient taking differently: 50 mg Oral ONCE PRN, Reported on 09/13/2022 propranolol (Inderal) 10 MG tablet Take 1 (one) tablet by mouth at bedtime PRN 90 tablet 3 3 Active DULoxetine (Cymbalta) 30 MG capsuleIndicatio ns:Depression, unspecified depression type Take 1 (one) capsule by mouth once daily 90 capsule 1 3 Active meloxicam (Mobic) 15 MG tabletIndication s:Pain in multiple finger joints,High risk medications (not anticoagulants) long-term use,Nodule of finger, unspecified laterality,Encou nter for screening mammogram for malignant neoplasm of breast Take 1 (one) tablet by mouth once daily as needed 90 tablet 4 Active diazePAM (Valium) 10 MG tablet Take 1 (one) tablet by mouth 3 times daily as needed (dental appointments or traveling) 30 tablet 1 4 Active Additional Information Patient not taking.Reported on 09/28/2023 aspirin (Aspirin) 81 MG chew tablet Take 1 (one) tablet by mouth once daily 100 tablet 4 4 Active losartan (Cozaar) 50 MG tabletIndication s:Primary hypertension Take 0.5 (one-half) tablet by mouth once daily 45 tablet 3 4 Active DULoxetine (Cymbalta) 60 MG capsule Take 1 (one) capsule by mouth once daily 90 capsule 3 4 Active Active Problems Problem Noted Date Diagnosed Date Basal cell carcinoma 04/05/2022 Overview (04/05/2022): face Hyperplastic colonic polyp 10/04/2021 Overview (10/04/2021): Colonoscopy 08/2018 Arthritis 03/14/2019 Overview (06/21/2021): Hands- RF slightly elevated 03/2019- doing well with mobic/cymbalta/dietary changes Assessment & Plan (06/21/2021 9:16 AM COACH OPERATOR): Continue current medication Assessment & Plan [...] valium Assessment & Plan (06/28/2018 10:27 AM COACH OPERATOR): .Continue current medication. Psoriasis 06/28/2018 Overview (06/28/2018): Worsens in winter Assessment & Plan (06/28/2018 10:31 AM COACH OPERATOR): Try dovonex Migraine 10/06/2008 Overview (04/20/2020): rare, does well with Imitrex Assessment & Plan (04/20/2020 9:23 AM CDT): Continue current medication. Assessment & Plan (06/28/2018 10:28 AM COACH OPERATOR): Continue current medication. Assessment & Plan (04/18/2017 9:13 AM CDT): Continue current medication. Assessment & Plan (09/03/2015 8:36 AM COACH OPERATOR): Continue current medication. Osteoporosis 05/22/2008 Overview (03/08/2022): DEXA 09/2015. 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 Assessment & Plan (03/14/2019 10:22 AM CDT): Continue current medication. Assessment & Plan (06/28/2018 10:26 AM COACH OPERATOR): Continue current medication. Assessment & Plan (04/18/2017 9:13 AM CDT): Continue current medication. Assessment & Plan (09/03/2015 8:35 AM COACH OPERATOR): Continue current medication. Hyperlipidemia Overview (09/13/2023): Elevated LDL 12/2014- fair with diet +FH CAD AHA risk- 12.2018- 11%, 10/2021 13%, 03/2022 13%, 09/2023 18 Assessment & Plan (09/12/2023 10:08 AM CDT): Labs pending, consider cardiac ct Assessment & Plan (09/13/2022 10:57 AM CDT): Stricter diet- declined medication Assessment & Plan (03/08/2022 11:28 AM CDT): Check lipid/liver panel Assessment & Plan (10/04/2021 11:50 AM CDT): Consider statin Assessment & Plan (06/21/2021 9:17 AM COACH OPERATOR): Continue diet Assessment & Plan (04/20/2020 9:23 AM CDT): Check lipid panel Assessment & Plan (03/14/2019 10:34 AM CDT): Labs at next check Assessment & Plan (04/18/2017 9:16 AM CDT): Check lipid panel Assessment & Plan (09/03/2015 8:40 AM COACH OPERATOR): stricter diet, recheck at next visit Resolved Problems Problem Noted Date Diagnosed Date Resolved Date DM (diabetes mellitus) 02/20 Encounters Date Type Department Care Team Description 02/18/2025 Patient Outreach [facility] - Care Coordination [address] [place] [id number] Krysten Stern MA Outreach Preventive Care from Last 3 Months Immunizations Immunization Administration Dates Next Due INFLUENZA VACCINE, TRIV. (AF LURIA, FLUZONE TRIVALENT; 6MO+) (IIV3) 04/04/2019,04/11/2018,03/07/2017 COVID PFIZER 12+YR 30MCG/0.3mL 04/19/2024,2022 COVID PFIZER BIVALENT 12Y+ 30mcg/0.3ML 12/15/2022,03/18/2022 Covid Pfizer primary Monoval ent 12+ yr 0.3ml 03/18/2022,11/04/2021 Covid Pfizer primary monoval ent 12+ yr 0.3mL Purple cap 03/27/2021,08/29/2020,08/06/2020 FLU VACCINE TRI IIV3 SPLIT P F IM (FLUVIRIN) 03/17/2020 INFLUENZA A [id number] VACCINE 07/13/2009 INFLUENZA VACCINE 03/25/2023,,03/18/2021,2018,04/03/2018,03/22/2017,03/03/2015,0 03/27/2012,03/17/2011 INFLUENZA VACCINE, ADJUVANTE D, QUADR. (FLUAD QUADRIVALENT; 65Y+) (AIIV4) 03/25/2023 INFLUENZA VACCINE, HIGH-DOSE , QUADR. (FLUZONE HIGH-DOSE QUADRIVALENT; 65Y+), 0.7 ML (HD-IIV4) 03/18/2022,03/18/2021,04/04/2019 INFLUENZA VACCINE, HIGH-DOSE , TRIV. (FLUZONE HIGH-DOSE TRIVALENT; 65Y+) (HD-IIV3) 04/19/2024 PNEUMOCOCCAL PPSV23 06/21/2021 Pneumococcal Pcv13 Conj 04/20/2020 RSV AREXVY 60YR+ 0.5ML 08/29/2023 TDAP (7yrs+) 01/02/2019 Zoster Hzv Vacc Recombinant Inj Im 11/16/2021, Family History Medical History Relation Name Comments Hypertension Brother Cancer Father BASAL CELL Diabetes Father TYPE II Cancer - Breast Maternal Grandmother Grandma wirwahn W as told she had breast cancer, but not certain Arthritis Mother Heart Disease Mother CHF Hypertension Mother Arthritis Paternal Grandmother Cancer - Colon Neg Hx Cancer - Ovarian Neg Hx Colon polyps Neg Hx Malignant Hyperthermia Neg Hx Relation Name Status Comments Brother Father Maternal Grandmother Grandma wirwahn Mother Paternal Grandmother Social History Tobacco Use Types Packs/Day Years Used Date Smoking Tobacco: Never Smokeless Tobacco: Never Tobacco Cessation:Counseling Given: Not Answered Alcohol Use Standard Drinks/Week Comments Not Currently 8 (1 standard drink = 0.6 oz pur e alcohol) 1 gin nightly. PHQ-2 Answer Date Recorded Patient Health Questionnaire-2 Score 1 09/05/2023 Comments No Sex and Gender Information Value Date Recorded Sex Assigned at Female 01/12/2021 8:47 AM CDT Legal Sex Female 4:47 AM COACH OPERATOR Gender Identity Female 03/08/2019 8:54 AM CDT Sexual Orientation Not on file Occupation Industry Job Start Date Job End Date retired Not on file Not on file Not on file Last Filed Vital Signs Vital Sign Reading Time Taken Comments Blood Pressure 128/70 09/28/2023 2:08 PM CDT Pulse 92 09/28/2023 2:08 PM CDT Temperature 36.5 C (97.7 F) 09/28/2023 2:08 PM CDT Respiratory Rate 14 07/26/2018 1:17 PM COACH OPERATOR Oxygen Saturation 97% 09/28/2023 2:08 PM CDT Inhaled Oxygen Concentration - - Weight 65.7 kg (144 lb 12.8 oz) 024 2:08 PM CDT Height 165.1 cm (5' 5) 09/28/2023 2:08 PM CDT Body Mass Index 24.1 09/28/2023 2:08 PM CDT Plan of Treatment Health Maintenance Due Date Last Done Comments CT COLONOGRAPHY - COLON CA SCREENING 1950 FIT - COLON CA SCREENING 1950 FLEX SIG - COLON CA SCREENING 1950 COLOGUARD (AGES 45-75) - COLON CA SCREENING 07/12/2021 07/12/2018 MEDICARE AWV 12 MONTHS 06/14/2024 06/14/2023, 04/05/2022, 04/20/2020 DEPRESSION SCREENING 07/03/2024 09/12/2023, 09/13/2022, 03/08/2022 MAMMOGRAM 09/27/2024 09/28/2023, 09/01, 08/10/2021, Additional history exists COVID-19 VACCINE ( season) 2024 04/19/2024, 03/31/2023, 12/15/2022, Additional history exists INFLUENZA VACCINE (#1) 2025 , 03/25/2023, 03/25/2023, Additional history exists COLON MONITORING 08/16/2028 08/16/2018 [...] complete this topic MENINGOCOCCAL (Group B) VACCINE SHARED DECISION-MAKING Aged Out No longer eligible based on patient's age to complete this topic MENINGOCOCCAL GROUPS A/C/Y/W VACCINE Aged Out No longer eligible based on patient's age to complete this topic Goals Goal Patient Goal Type Associated Problems Recent Progress Patient-Stated? Author Blood Pressure < 140/90 Blood Pressure 128/70(2023 2:08 PM CDT) Patricia Calderon Have labs drawn Lifestyle Irma Georges Procedures Procedure Name Priority Date/Time Associated Diagnosis [...] DENSITY 2 SITES Routine 09/03/2015 9:23 AM COACH OPERATOR Osteoporosis from Last 3 Months or [...] MLO. Images interpreted with CAD. Following current [facility] protocol, 3D mammographic tomosynthesis images were obtained and reviewed on a dedicated viewing station. FINDINGS: Breast composition: Heterogeneously dense which may obscure small masses. No suspicious microcalcifications, masses or areas of architectural distortion. us Jeremiah Peterson MD MAMMO ORDERABLES Final Resul t * (ABNORMAL) LIPID PROFILE (09/12/2023 9:41 AM [...] Resulting Agency Comment Lab Testing performed at: [facility] [address] [place] [id number] us Paulette Vega REPAIRER SHOE STIC[employer] SECURITY SCREENER LAB - CHEMISTRY ORDERABLE S Final Result [facility] INSURANCE BILL [address] [place] [address] * HEPATITIS SCREEN ACUTE (01/31/2020 10:44 AM [...] Resulting Agency Comment Lab Testing performed at: [facility] [address] [place] [id number] us Elliot Dodge MD LAB - CHEMISTRY ORDERABLES Kesha l Result Performing Organization Address City/[facility]/ZIP Co de Phone Number [facility] INSURANCE BILL [address] [place] [address] * ENDOSCOPY, COLON, DIAGNOSTIC (08/16/2018) us Mikala Marquez REPAIRER [employer] SECURITY SCREENER GI PROCEDURE ORDERA BLES Final Result Performing Organization Address [facility] Co de Phone Number [facility] RESULT SCAN * COLOGUARD TEST (07/12/2018) Cologuard (External Result) NEGATIVE OTHER LAB Stool STOOL SPECIMEN / Unknown 07/12/2018 us Jeremiah Peterson MD LAB - CHEMISTRY ORDERABLES F inal Result Performing Organization Address [facility] Co de Phone Number OTHER LAB * DEXA BONE DENSITY 2 SITES (09/03/2015 9:23 AM COACH OPERATOR) Anatomical Region Laterality Modality Mammography 09/03/2015 11:3 7 AM COACH OPERATOR Narrative 09/03/2015 11:44 AM COACH OPERATOR Bone density study (DEXA): HISTORY: Postmenopausal [...] to -2.5 Osteoporosis = -2.5 and below [facility]: Systems Integration [employer] [facility]: [address] [facility] [address] [facility] [address]: [place] [facility]: Systems Integration [place] C Procedure Note Cleopatra Rogers MD - [...] to -2.5 Osteoporosis = -2.5 and below [facility]: Hologic [employer] [facility]: [employer] [facility] [address]: [employer] [facility]: Hologic Piotr Akers Jeremiah Peterson MD DEXA ORDERABLES Final Result from Last 3 Months or Most Recently Relevant to Health Maintenance Insurance MEDICARE [facility] Address: [facility] [id number] [place] [address] [place] [address] Care Teams Oil And Gas Principal Relationship Specialty Start Date End Date Jeremiah Peterson MD [address] [place] [address] PCP - General Internal Medicine 08/31/15 Chaparro Joseph MD [address] [place] [address] Masking Machine Operator Cardiovascular Disease 04/18/17 [place] [address] [address] [id number] Dermatology 04/18/17 Krysten Stern MA Care Coordination Specialist 02/18/25
[2025-02-21 11:10] LABS: Alanine Aminotransferase 18 U/L (6-35); Albumin Level 4.3 g/dL (3.5-5.1); Alkaline Phosphatase 70 U/L (38-126); Anion Gap 5 mmol/L (4-12); Aspartate Amino Transferase 31 U/L (14-36); Bilirubin,Total 0.5 mg/dL (0.2-1.3); Blood Urea Nitrogen 21 mg/dL (7-17); Calcium 9.8 mg/dL (8.4-10.2); Carbon Dioxide 28 mmol/L (22-30); Chloride 101 mmol/L (98-107); Cholesterol 240 mg/dL (0-200); Estimated Glomerular Filt Rate 51; Glucose 111 mg/dL (65-110); HDL Direct 73 mg/dL; Potassium 4.7 mmol/L (3.4-5.0); Sodium 134 mmol/L (137-145); Total Protein 7.7 g/dL (6.3-8.2); Triglycerides 72 mg/dL (<150)
== END 2025-02-21 10:27 | disposition home or self-care (01) ==
PROVIDERS: PCP Emergency Medicine; Visit Provider Emergency Medicine
DX: E78.5 Hyperlipidemia, unspecified (principal); E55.9 Vitamin D deficiency, unspecified
CPT/HCPCS: 36415; 80053; 80061; 82306

== ENCOUNTER 2025-05-29 14:02 | Emergency (ER) | payer MEDICARE, BC, SELFPAY ==
--- NOTE | ~2025-05-29 | XR_ITS ---
PROCEDURE/PROCEDURES: XR shoulder RT min 2V HISTORY: GLF with pain COMPARISON(S): None. TECHNIQUE: 3 radiographic images were submitted for interpretation. FINDINGS: Bones: There is a mildly comminuted, impacted fracture of the proximal humerus. Given difficulty with positioning the patient, it is not optimally evaluated.. There are no destructive lesions or other lesions identified. Joints: There are no dislocations identified. There is no evidence of erosive arthropathy. IMPRESSION: Proximal humeral fracture Reviewed, dictated and finalized at location A. ADIER IMPRESSION: Proximal humeral fracture
--- NOTE | ~2025-05-29 | XR_ITS ---
EXAMINATION: XR chest 1V, 05/29/2025 14:35 INSPECTOR METAL CAN HISTORY: ?fx? COMPARISON: No comparisons available. Technique: Single view. Findings: The lungs are clear, no effusion. No pneumothorax. Heart is normal size. Mediastinal and hilar contours are within normal limits. There is a nondisplaced fracture of the right humeral neck. There is a questionable fracture of the right scapula. Impression: Fractures detailed above. CT suggested to assess. Reviewed, dictated and finalized at location P. ECTOR METAL CAN Impression: Fractures detailed above. CT suggested to assess.
--- NOTE | ~2025-05-29 | CT_ITS ---
EXAMINATION: CT shoulder RT wo con COMPARISON: None HISTORY: fall with hum fx TECHNIQUE: Axial images were obtained without IV contrast. Sagittal, coronal reconstruction images were obtained from the axial views. CT scan performed using dose optimization techniques including the following automated exposure control; adjustment of mA and/or kV; use of iterative reconstruction technique. Automatic exposure control was used to reduce radiation dose. Permanent radiation dose record is archived to PACS. FINDINGS: Minimal degenerative changes of the acromioclavicular joint. Minimal degenerative changes of the glenohumeral joint. There is an impacted fracture of the humeral neck with fracture lines extending into the greater tuberosity which appears comminuted and slightly displaced. There is no intra-articular extension evident. Small joint effusion is noted. No significant intramuscular hemorrhage identified. The visualized lung parenchyma appears unremarkable. IMPRESSION: Fracture of the humeral neck and head detailed above. No dislocation. Reviewed, dictated and finalized at location P. IOPULMONARY SUPERVISOR IMPRESSION: Fracture of the humeral neck and head detailed above. No dislocatio n.
--- OUTSIDE RECORDS SUMMARY | 2025-05-29 14:28 | XMS_ITS | Patient Health Record ---
Author Organization Inc. Oral Address [address] [place], [place] [id number] Care Team Providers Care Z Os Mainframe Systems Programmer Name Role Phone TIFFANI ALEXANDER Primary Care Provider Paulette Guerrero Unavailable [phone] Allergies Allergen (clinical drug ingredient) Drug/Non Drug Allergy documented on EMR Reaction Allergy Type Onset Date Status base metal (uncoded) Unknown Allergy Active Reason For Referral No Information Medications Medication SIG (Take, Route, Frequency, Duration) Notes Start Date End Date Status Losartan Potassium A ctive Propranolol HCl Acti ve Meloxicam 15 MG TAKE 1 TABLET BY BORIS TH EVERY DAY Oral; Duration: 90 Active Mometasone Furoate 0.1 % APPLY A THIN LA KARON TOPICALLY TO ARMS AND LEGS TWICE DAILY; Duration: 20 Active Immunizations Vaccine Route Administration Date Status Comme nts Influenza, unspecified formu lation (CPT 50517 Inactive) Unknown 03/07/2017 Administered Influenza, unspecified formu lation (CPT 20449 Inactive) Unknown 04/11/2018 Administered Influenza, unspecified formu lation (CPT 95376 Inactive) Unknown 04/04/2019 Administered Influenza, unspecified formu lation (CPT 85465 Inactive) Unknown 03/17/2020 Administered Influenza, unspecified formu lation (CPT 50781 Inactive) Unknown 04/20/2021 Administered Influenza, unspecified formu lation (CPT 52586 Inactive) Unknown 03/18/2022 Administered Influenza, unspecified formu lation (CPT 94112 Inactive) Unknown 03/08/2023 Administered Pneumococcal polysaccharide PPV23 Unknown 11/30/2017 Re fused Pneumococcal polysaccharide PPV23 Unknown 11/10/2021 Re fused Pneumococcal polysaccharide PPV23 Unknown 11/14/2023 Re fused Influenza, unspecified formu lation (CPT 34232 Inactive) Unknown 11/12/2024 Refused Pneumococcal polysaccharide PPV23 Unknown 11/12/2024 Re fused Social History Tobacco Use: Social History Observation Description Date Details (start date - stop date) Never Smoker NA - NA Tobacco Use/Smoking Question Answer Notes Are you a nonsmoker Problems Problem Type SNOMED Code ICD Code Onset Dates Problem Status W/U Status Risk Notes Problem Neoplasm of uncertain behavior of skin (58412996) Neoplasm of uncertain behavior of skin (D48.5) Active confirmed Problem Psoriasis vulgaris (636912704) Psoriasis vulgaris (L40.0) Active confirmed Patient ashley gusman use mometasone cream as needed, she is not interested in systemic medication. Problem Actinic keratosis (998740) Actinic keratosis (L57.0) Active confirmed Lesions were [...] of malignant basal cell tumor of skin (528363019) History of basal cell carcinoma (Z85.828) Active confirmed No evidence of recurrence or new lesions indicative of this malignancy on full skin exam. Patient instructed on skin cancer monitoring and sun protection. Problem Psoriasis (3323474) Psoriasis (L40.9) Active confirmed approximately 4% by surface area coverage Thinly scattered over her elbows legs and abdomen which patient is happy with and will continue topical mometasone cream as needed. Problem Multiple seborrheic keratoses (759858666) Seborrheic keratoses (L82.1) Active confirmed Problem Keratoacanthoma (377318973) Keratoacanthoma (L85.8) Active confirmed No evidence of recurrence or new lesions indicative of this malignancy on full skin exam. Patient instructed on skin care monitoring and sun protection. Problem Multiple benign melanocytic nevi (467939697) Multiple nevi (D22.9) Active confirmed Benign appearing nevi were noted on head, neck, trunk or extremities. Patient education was provided including the ABCDs of melanoma and identification of nonmelanoma skin cancers as well as the importance of sun protection. Vital Signs Weight 145 lbs 11/12/2024 Encounters Encounter Location Date Provider Diagnosis [facility] [address] [place], [place] [id number] 11/12/2024 Paulette Chamberlain Psoriasis vulgaris L 40.0 ; Multiple nevi [...] Biopsy 11/10/2021 Next Appt Details Provider Name:Paulette Bill Chamberlain , 11/11/2025 10:30:00 AM, [address], [place], [place], [id number], Insurance Providers Payer Name Payer Address Payer Phone Subscriber Number Group Number Insured Name Patient Relationship to Insured Coverage Start Date Coverage End Date [place] [address] [address] [place] [phone] [id number] RAH AVILA Self - patient is the insured [facility] [address] [place] [phone] [id number] SHAKA AVILA Spouse - patient is the spouse of the insured Medical (General) History Medical History History ICD Code Actinic Keratosis (pre-cancers) Arthritis Basal Cell Carcinoma Hypertension Migraines Surgical History Surgery Date(Month/Year) tubal ligation skin cancer surgery
--- OUTSIDE RECORDS SUMMARY | 2025-05-29 14:28 | XMS_ITS | Clinical Summary ---
Author Organization [facility] Address [address] [place] [address] Care Team Providers Care Specialist Wound Care Name Role Phone Chaparro Joseph MD Unavailable Paulette Chamberlain MD Unavailable [phone] Source Comments [facility],non-owned Affiliates and Associated Physician Practices is amultiple site organization consisting of ambulatory clinics and hospital sitesin [place], [place], [place] and [place]. This disclosure is being madepursuant to the Care Everywhere program and may not contain all information available regarding this patient. Last updated 18.[facility] Allergies Active Allergy Reactions Criticality Noted [...] changes Assessment & Plan (06/21/2021 9:16 AM INDUCTION HEATING EQUIPMENT SETTER): Continue current medication Assessment & Plan (04/20/2020 [...] valium Assessment & Plan (06/28/2018 10:27 AM INDUCTION HEATING EQUIPMENT SETTER): .Continue current medication. Psoriasis 06/28/2018 Overview (06/28/2018): Worsens in winter Assessment & Plan (06/28/2018 10:31 AM INDUCTION HEATING EQUIPMENT SETTER): Try dovonex Migraine 10/06/2008 Overview (04/20/2020): rare, does well with Imitrex Assessment & Plan (04/20/2020 9:23 AM CDT): Continue current medication. Assessment & Plan (06/28/2018 10:28 AM INDUCTION HEATING EQUIPMENT SETTER): Continue current medication. Assessment & Plan (04/18/2017 9:13 AM CDT): Continue current medication. Assessment & Plan (09/03/2015 8:36 AM INDUCTION HEATING EQUIPMENT SETTER): Continue current medication. Osteoporosis 05/22/2008 Overview (03/08/2022): DEXA 09/2015. 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 Assessment & Plan (03/14/2019 10:22 AM CDT): Continue current medication. Assessment & Plan (06/28/2018 10:26 AM INDUCTION HEATING EQUIPMENT SETTER): Continue current medication. Assessment & Plan (04/18/2017 9:13 AM CDT): Continue current medication. Assessment & Plan (09/03/2015 8:35 AM INDUCTION HEATING EQUIPMENT SETTER): Continue current medication. Hyperlipidemia Overview (09/13/2023): Elevated LDL 12/2014- fair with diet +FH CAD AHA risk- .2019- 11%, 10/2021 13%, 03/2022 13%, 09/2023 18 Assessment & Plan (09/12/2023 10:08 AM CDT): Labs pending, consider cardiac ct Assessment & Plan (09/13/2022 10:57 AM CDT): Stricter diet- declined medication Assessment & Plan (03/08/2022 11:28 AM CDT): Check lipid/liver panel Assessment & Plan (10/04/2021 11:50 AM CDT): Consider statin Assessment & Plan (06/21/2021 9:17 AM INDUCTION HEATING EQUIPMENT SETTER): Continue diet Assessment & Plan (04/20/2020 9:23 AM CDT): Check lipid panel Assessment & Plan (03/14/2019 10:34 AM CDT): Labs at next check Assessment & Plan (04/18/2017 9:16 AM CDT): Check lipid panel Assessment & Plan (09/03/2015 8:40 AM INDUCTION HEATING EQUIPMENT SETTER): stricter diet, recheck at next visit Resolved Problems Problem Noted Date Diagnosed Date Resolved Date DM (diabetes mellitus) 02/20 Immunizations Immunization Administration Dates Next Due INFLUENZA VACCINE, TRIV. (AF LURIA, FLUZONE TRIVALENT; 6MO+) (IIV3) 04/04/2019,04/11/2018,03/07/2017 COVID PFIZER 12+YR 30MCG/0.3mL 04/19/2024,2022 COVID PFIZER BIVALENT 12Y+ 30mcg/0.3ML 12/15/2022,03/18/2022 Covid Pfizer primary Monoval ent 12+ yr 0.3ml 03/18/2022,11/04/2021 Covid Pfizer primary monoval ent 12+ yr 0.3mL Purple cap 03/27/2021,08/29/2020,08/06/2020 FLU VACCINE TRI IIV3 SPLIT P F IM (FLUVIRIN) 03/17/2020 INFLUENZA A [id number] VACCINE 07/13/2009 INFLUENZA VACCINE 03/25/2023,,03/18/2021,2018,04/03/2018,03/22/2017,03/03/2015,0 03/27/2012,03/17/2011 INFLUENZA [...] II Cancer - Breast Maternal Grandmother Grandma wichema W as told she had breast cancer, but not certain Arthritis Mother Heart Disease Mother CHF Hypertension Mother Arthritis Paternal Grandmother Cancer - Colon Neg Hx Cancer - Ovarian Neg Hx Colon polyps Neg Hx Malignant Hyperthermia Neg Hx Relation Name Status Comments Brother Father Maternal Grandmother Grandma wirwaal Mother Paternal Grandmother Social History Tobacco Use [...] AM CDT Legal Sex Female 4:47 AM INDUCTION HEATING EQUIPMENT SETTER Gender Identity Female 03/08/2019 8:54 AM CDT [...] CDT Respiratory Rate 14 07/26/2018 1:17 PM INDUCTION HEATING EQUIPMENT SETTER Oxygen Saturation 97% 09/28/2023 2:08 PM CDT [...] Additional history exists COVID-19 VACCINE ( season) 2025 04/19/2024, 03/31/2023, 12/15/2022, Additional history exists INFLUENZA [...] Blood Pressure 128/70(2023 2:08 PM CDT) No Liban Patricia Ledesma Have labs drawn Lifestyle No Irma Laughlin [...] DENSITY 2 SITES Routine 09/03/2015 9:23 AM INDUCTION HEATING EQUIPMENT SETTER Osteoporosis from Last 3 Months or Most [...] MLO. Images interpreted with CAD. Following current [facility] protocol, 3D mammographic tomosynthesis images were obtained [...] Resulting Agency Comment Lab Testing performed at: [facility] [address] [place] [id number] us Paulette Vega APRN-ACADEMIC PHYSICIAN LAB - CHEMISTRY ORDERABLE S Final Result Performing Organization Address City/[facility] Co de Phone Number [facility] INSURANCE BILL [address] [place] [address] * HEPATITIS SCREEN ACUTE (01/31/2020 10:44 AM [...] Comment Lab Testing performed at: [facility] [address] [place] [id number] us Elliot Dodge MD LAB - CHEMISTRY ORDERABLES Kesha l Result [facility] INSURANCE BILL [address] [place] [address] * ENDOSCOPY, COLON, DIAGNOSTIC (08/16/2018) us Mikala Marquez EMAIL ADMINISTRATOR-ACADEMIC PHYSICIAN GI PROCEDURE ORDERA BLES Final Result Performing Organization Address City/[facility]/ZIP Co de Phone Number [facility] RESULT SCAN * COLOGUARD TEST (07/12/2018) Cologuard (External Result) NEGATIVE OTHER LAB Stool STOOL SPECIMEN / Unknown 07/12/2018 us Jeremiah Peterson MD LAB - CHEMISTRY ORDERABLES F inal Result Performing Organization Address City/[facility]/ZIP Co de Phone Number OTHER LAB * DEXA BONE DENSITY 2 SITES (09/03/2015 9:23 AM INDUCTION HEATING EQUIPMENT SETTER) Anatomical Region Laterality Modality Mammography 09/03/2015 11:3 7 AM INDUCTION HEATING EQUIPMENT SETTER Narrative 09/03/2015 11:44 AM INDUCTION HEATING EQUIPMENT SETTER Bone density study (DEXA): HISTORY: Postmenopausal female [...] to -2.5 Osteoporosis = -2.[address] [facility]: [employer] [facility]: [employer] [facility] [address]: [employer] [facility]: [employer] [place] C Procedure Note Cleopatra Rogers MD - [...] to -2.5 Osteoporosis = -2.5 and below [facility]: [employer] [facility]: [employer] [facility] [address]: [employer] [facility]: [employer] [place] C Jeremiah Peterson MD DEXA ORDERABLES Final Result from Last 3 Months or Most Recently Relevant to Health Maintenance Insurance MEDICARE [employer] Care Teams Specialist Wound Care Relationship Specialty Start Date End Date Chaparro Joseph MD Convenience Store Manager Cardiovascular Disease 04/18/17 [place] [address] [address] Dermatology 04/18/17
[2025-05-29 14:33] VITALS: BP 141/74; PULSE 74; RESP 22; TEMP 36.4; O2SAT 100
[2025-05-29] MEDS: HYDROmorphone HCL INJ (*CRX) 1 MG/ML SYR 0.5 MG IV PUSH (14:53)
--- NOTE | 2025-05-29 17:26 | ED_ITS ---
HPI - Extremity Injury (Upper) General Chief Complaint: Extremity Injury, Upper Stated Complaint: shoulder injury Time Seen by Provider: 05/29/25 14:08 History of Present Illness HPI narrative: Patient was visiting her at the memory care facility for lunch, when she slipped on puddle of water and fell, landing on her right shoulder. No head injury. Related Data Home Medications ?Medication ?Instructions ?Recorded ?Confirmed ?Last Taken ?Type mometasone 0.1 % topical cream 1 applic topical DAILY 07/13/22 02/19/25 Unknown History Allergies Allergy/AdvReac Type Severity Reaction Status Date / Time alendronate sodium (From Allergy Intermediate Unresponsiv Verified 05/29/25 14:50 Fosamax) e seafood Allergy Intermediate Nausea and Uncoded 02/19/25 09:52 Vomiting Review of Systems Review of Systems: All systems reviewed & are unremarkable except as noted in HPI and below PMFSH Past Medical History Medical History Sinusitis Cataract Psoriasis Hypertension Premature atrial contractions Migraine BCC (basal cell carcinoma), face Arthritis Surgical History Surgical History Hx of cataract removal with insertion of prosthetic lens H/O tubal ligation S/P Mohs surgery for basal cell carcinoma Family History Family History Father Basal cell carcinoma (BCC) Diabetes mellitus Sibling Basal cell carcinoma (BCC) Mother Hypertension Heart problem Cerebrovascular accident Social History Social History Smoking status: Never smoker Second hand tobacco smoke exposure: No Alcohol intake: current Alcohol use details: seldomly Substance use: never Substance use type: does not use Lack of Transportation: No Lack of Food: Never True Current Housing: I Have Housing Concerned About Future Housing: No Difficulty Paying Gas/Electric Bills: No Difficulty Paying for Meds: No Currently Unemployed: No Education: Trade/Vocational Certificate Difficulty w/ Childcare or Family Care: No Living arrangements: with family Occupation/Education: retired Agree to blood products: Yes Exam Narrative: EXAMINATION OF ORGAN SYSTEMS/BODY AREAS: Constitutional: Vital signs per nursing GENERAL: Patient appears slightly uncomfortable HEAD: Normal with no signs of head trauma. EYES: EOMI, conjunctiva normal ENT: Hearing grossly intact LUNGS: Nonlabored breathing. HEART: [Regular rate and rhythm], normal rate radial pulse ABD: [Soft], [nontender to palpation] EXT: Tenderness right upper arm; able to move wrist and hand without issue SKIN: [No rashes or lesions.] NEURO: [Alert and oriented x 3. No gross focal sensory or strength deficits.] PSYCH: Normal affect Course Vital Signs Vital signs: Vital Signs Temperature 97.6 F 05/29/25 14:33 Pulse Rate 74 05/29/25 14:33 Respiratory Rate 22 H 05/29/25 14:33 Blood Pressure 141/74 H 05/29/25 14:33 Pulse Oximetry 100 05/29/25 14:33 Temperature 97.6 F 05/29/25 14:33 Pulse Rate 74 05/29/25 14:33 Respiratory Rate 22 H 05/29/25 14:33 Blood Pressure 141/74 H 05/29/25 14:33 Pulse Oximetry 100 05/29/25 14:33 MDM - Extremity Injury (Upper) MDM Narrative Medical decision making narrative: Patient was visiting [facility] for lunch, when she slipped on puddle of water and fell, landing on her right shoulder. No head injury. On exam she does have some tenderness to the right humerus, she is neurovascular ly intact; x-ray on my independent interpretation unfortunately shows proximal humerus fracture. Discussed with orthopedist who recommends CT, he did review this and would like patient to follow up with the clinic. Discussed with patient who is agreeable to plan. She is given a small dose of Dilaudid here after her fentanyl wore off and is now resting comfortably. Agreeable to follow-up in outpatient management, prescriptions for oxycodone, muscle axis provided and return precautions, she is in sling Discharge Plan Discharge Clinical Impression: Fracture, humerus Patient Disposition: Home Condition: Stable Instructions: Arm Fracture in Adults (ED), How to Use a Sling (ED) Additional Instructions: Please follow-up with orthopedic surgeon. You can always return to the emergency room if your symptoms worsen. You can try the medications as prescribed. Patient Language: Uzbek Prescriptions: New acetaminophen [Tylenol Extra Strength] 500 mg tablet 1,000 mg PO Q6H PRN (Reason: pain) Qty: 50 0RF methocarbamol 750 mg tablet 750 mg PO TID PRN (Reason: muscle spasm) Qty: 30 0RF oxycodone 5 mg capsule 5 mg PO Q6H PRN (Reason: pain) Qty: 20 0RF No Action mometasone 0.1 % cream 1 applic topical DAILY cholecalciferol (vitamin D3) 50 mcg (2,000 unit) capsule 100 mcg PO DAILY Qty: 180 2RF gabapentin [Neurontin] 300 mg capsule 300 mg PO TID Qty: 30 0RF losartan 25 mg tablet See Rx Instructions .ROUTE .COMPLEX Qty: 90 2RF Dose Instruction: TAKE 1 TABLET BY MOUTH DAILY Rx Instructions: TAKE 1 TABLET BY MOUTH DAILY meloxicam 15 mg tablet See Rx Instructions .ROUTE .COMPLEX Qty: 90 2RF Dose Instruction: TAKE 1 TABLET BY MOUTH DAILY Rx Instructions: TAKE 1 TABLET BY MOUTH DAILY propranolol 10 mg tablet See Rx Instructions .ROUTE .COMPLEX Qty: 180 2RF Dose Instruction: TAKE 1 TABLET BY MOUTH TWICE DAILY Rx Instructions: TAKE 1 TABLET BY MOUTH TWICE DAILY Follow-up/Referrals: Earnest Najera MD [Primary Care Provider, Internal Medicine] Faizan Clifford MD [Physician, Orthopedics] - 2 Days
== END 2025-05-29 16:06 | disposition home or self-care (01) ==
PROVIDERS: Emergency Provider Emergency Medicine; PCP Emergency Medicine
DX: S42.211A Unspecified displaced fracture of surgical neck of right humerus, initial encounter for closed fracture (principal); S42.251A Displaced fracture of greater tuberosity of right humerus, initial encounter for closed fracture; I10 Essential (primary) hypertension; L40.9 Psoriasis, unspecified; M19.90 Unspecified osteoarthritis, unspecified site; Z85.828 Personal history of other malignant neoplasm of skin; Z96.1 Presence of intraocular lens; Z98.49 Cataract extraction status, unspecified eye; W01.0XXA Fall on same level from slipping, tripping and stumbling without subsequent striking against object, initial encounter
CPT/HCPCS: 71045; 73030; 73200; 96374; 99284; J1171